=== PATIENT | female | born 2000 | race African-American/Black ===

== ENCOUNTER 2020-11-23 17:03 | Emergency (ER) | payer OTHER, SELFPAY ==
[2020-11-23 17:17] VITALS: BP 95/68; PULSE 104; RESP 18; TEMP 36.7; O2SAT 100
[2020-11-23 17:26] LABS: Basophils Percent Auto 0.1 % (0.2-1.2); Eosinophils Absolute Auto 0.1 K/mm3 (0-0.3); Eosinophils Percent Auto 0.7 % (0-4.4); Hematocrit 36.4 % (37.0-47.0); Hemoglobin 12.5 g/dL (12.0-15.0); Immature Granulocyte Absolute 0.02 K/mm3 (0.00-0.031); Immature Granulocyte Percent A 0.3 % (0-0.5); Lymphocytes Absolute Auto 1.35 K/mm3 (0.9-3.2); Lymphocytes Percent Auto 18.9 % (18.3-44.2); Mean Corpuscular HGB Conc 34.3 g/dl (32-36); Mean Corpuscular Hemoglobin 32.6 pg (26-34); Mean Corpuscular Volume 94.8 fl (80-100); Mean Platelet Volume 8.6 fl (7.4-10.4); Monocytes Absolute Auto 0.5 K/mm3 (0.1-0.6); Monocytes Percent Auto 7.6 % (2.6-8.5); Neutrophils Absolute Auto 5.2 K/mm3 (1.3-6.7); Neutrophils Percent Auto 72.4 % (45.5-73.1); Platelet Count Result 214 k/mm3 (150-375); Red Blood Count 3.84 M/mm3 (4.2-5.4); Red Cell Distribution Width 13.1 % (11.5-14.5); White Blood Count 7.2 K/mm3 (4.5-10.0)
[2020-11-23 19:17] VITALS: BP 112/67; PULSE 109; RESP 16; O2SAT 97
[2020-11-23 19:27] LABS: Alanine Aminotransferase 17 U/L (4-35); Albumin Level 3.9 g/dL (3.5-5.1); Alkaline Phosphatase 78 U/L (38-126); Anion Gap 8 mmol/L (8-16); Aspartate Amino Transferase 33 U/L (14-36); Bilirubin,Total 0.2 mg/dL (0.2-1.3); Blood Urea Nitrogen 6 mg/dL (7-17); Calcium 9.5 mg/dL (8.4-10.2); Carbon Dioxide 21 mmol/L (22-30); Chloride 107 mmol/L (98-107); Estimated CRCL calculation 148 ml/min; Estimated Glomerular Filt Rate > 60; Glucose 86 mg/dL (65-105); Lipase 59 U/L (23-300); Potassium 3.4 mmol/L (3.4-5.0); Sodium 136 mmol/L (137-145)
[2020-11-23 19:40] LABS: Add Urine Microscopic? YES; Amorphous Sediment Urine Few; Appearance Urine Cloudy (Clear); Bacteria Urine Trace /hpf; Bilirubin Urine Negative (Negative); Blood Urine Negative (Negative); Color Urine Yellow (Yellow); Glucose Urine UA Negative (Negative); Ketones Urine Negative (Negative); Leukocyte Esterase Ur Negative LEU/UL (Negative); Mucus Urine Few /lpf; Nitrate Urine Negative (Negative); Protein Urine 1+ mg/dL (Negative); RBC Urine 0-2 /hpf (0-2); Specific Grav Ur 1.024 (1.001-1.035); Squamous Epithelial Cell Urine Moderate /hpf (Few); Urobilinogen Urine Negative mg/dL (<2.0)
--- NOTE | 2020-11-23 19:43 | ED.ABDPAIN ---
HPI - Abdominal Pain General Chief Complaint: Abdominal Pain Stated Complaint: Lower ABD Cramping, 16 weeks preg Time Seen by Provider: 11/23/20 19:10 History of Present Illness HPI narrative: 16 weeks . Moderate lower abdominal cramping since this morning. Tried tyelonol without relief. She reports that she does not remember the last time she had a bowel movement. No vaginal bleeding, discharge, dysuria, hematuria. Related Data Allergies Allergy/AdvReac Type Severity Reaction Status Date / Time No Known Allergies Allergy Verified 11/23/20 19:19 Review of Systems Review of Systems: All systems reviewed & are unremarkable except as noted in HPI and below Constitutional: Constitutional: Denies fever(s) ENT: Denies dizziness Cardiovascular: Cardiovascular: Denies chest pain Respiratory: Respiratory: Denies dyspnea Gastrointestinal: Gastrointestinal: Reports abdominal pain, Reports constipation and Denies nausea Genitourinary: Genitourinary: Denies abnormal vaginal bleeding, Denies hematuria, Denies dysuria and Denies vaginal discharge Neurologic: Denies dizziness and Denies weakness [facility] Social History Social History (Updated 11/29/20 @ 15:29 by Parth Lucio MD) Smoking status: Never smoker Substance use: never Exam Const: General: healthy appearing, no acute distress and alert Orientation/consciousness: patient oriented x3 HENMT: Head: normal to inspection Neck: Neck: normal visual inspection Resp: Effort & Inspection: normal respiratory effort Auscultation: clear to auscultation bilaterally, no rales, no rhonchi and no wheezes Cardio: Jugular venous distension: no JVD Rate: regular rate Rhythm: regular rhythm Heart sounds: no murmurs GI: Inspection: non-distended GI Palp: Yes Soft to palpation and No Tenderness to palpation present (GI) Skin: General skin exam: normal color Neuro: General: patient oriented x3 and moves all extremities Speech: normal speech Extrem: General: no edema Psych: Appearance: well kempt Affect: Anxious affect present Procedures Other Procedure Procedure 1: Other Procedure: Bedside US Grossly normal appearing 16 week fetus Reassuring movement FHR 145 Course Vital Signs Vital signs: Vital Signs Temperature 36.7 C 11/23/20 17:17 Pulse Rate 104 H 11/23/20 17:17 Respiratory Rate 18 11/23/20 17:17 Blood Pressure 95/68 L 11/23/20 17:17 Pulse Oximetry 100 11/23/20 17:17 Temperature 36.7 C 11/23/20 17:17 Pulse Rate 109 H 11/23/20 19:17 Respiratory Rate 16 11/23/20 19:17 Blood Pressure 112/67 11/23/20 19:17 Pulse Oximetry 97 11/23/20 19:17 MDM - Abdominal Pain MDM Narrative Medical decision making narrative: Exam benign. Reassuring ultrasound. Based on H&P pain is likely constipation +/- normal related pain Differential Diagnosis Differential diagnosis: Likely constipation Medical Records Attestation: I reviewed the patient's medical records. Lab Data Attestation: I reviewed the patient's lab results. Result diagrams: 11/23/20 17:20 11/23/20 17:20 Labs: Lab Results 11/23/20 11/23/20 11/23/20 Range/Units 17:20 17:20 17:20 WBC 7.2 (4.5-10.0) K/mm3 RBC 3.84 L (4.2-5.4) M/mm3 Hgb 12.5 (12.0-15.0) g/dL Hct 36.4 L (37.0-47.0) % MCV 94.8 (80-100) fl MCH 32.6 (26-34) pg MCHC 34.3 (32-36) g/dl RDW 13.1 (11.5-14.5) % Plt Count 214 (150-375) k/mm3 MPV 8.6 (7.4-10.4) fl Immature Gran % (Auto) 0.3 (0-0.5) % Neut % (Auto) 72.4 (45.5-73.1) % Lymph % (Auto) 18.9 (18.3-44.2) % [place] % (Auto) 7.6 (2.6-8.5) % Eos % (Auto) 0.7 (0-4.4) % Baso % (Auto) 0.1 L (0.2-1.2) % Lymph # (Auto) 1.35 (0.9-3.2) K/mm3 [place] # (Auto) 0.5 (0.1-0.6) K/mm3 Eos # (Auto) 0.1 (0-0.3) K/mm3 Baso # (Auto) 0.0 (0.0-0.1) K/mm3 Abs Immat Gran (auto) 0.02 (0.00-0.031) K/mm3 Absolut
== END 2020-11-23 20:07 | disposition home or self-care (01) ==
PROVIDERS: Emergency Medicine; Emergency Provider Emergency Medicine
DX: O26.892 Other specified pregnancy related conditions, second trimester (principal); R10.30 Lower abdominal pain, unspecified; O99.612 Diseases of the digestive system complicating pregnancy, second trimester; K59.00 Constipation, unspecified; Z3A.16 16 weeks gestation of pregnancy
CPT/HCPCS: 36415; 80053; 81001; 83690; 84702; 85025; 85461; 99284

== ENCOUNTER 2021-01-22 23:12 | Observation (INO) | payer OTHER, SELFPAY ==
--- NOTE | 2021-01-22 23:58 | OBADM ---
This patient, Will Tomlinson, admitted to the OB room OB Post 117 for observation. Patient/family oriented to hospital policies and general routines including ID bracelet, bed and alarms, visiting hours, pain management, procedures, bathroom and other care routines, personal items, smoking policy, room service/diet, and visiting hours. Patient/Family are encouraged to report perceived risks to care and to ask questions if they do not understand what they are told or what they should do.
[2021-01-23 00:02] VITALS: BMI 28.3
[2021-01-23 00:05] VITALS: RESP 18; TEMP 36.8
[2021-01-23 00:26] LABS: Appearance Urine Clear (Clear); Bilirubin Urine Negative (Negative); Blood Urine Negative (Negative); Color Urine Light Yellow (Yellow); Glucose Urine UA Negative (Negative); Ketones Urine Negative (Negative); Nitrate Urine Negative (Negative); Protein Urine Negative (Negative); Specific Grav Ur 1.015 (1.001-1.035); pH Urine 7.5 (5.0-9.0)
[2021-01-23 00:27] LABS: Add Urine Microscopic? NO; Leukocyte Esterase Ur Negative LEU/UL (Negative); RBC Urine 0-2 /hpf (0-2); Squamous Epithelial Cell Urine Few /hpf (Few); Urobilinogen Urine 0.2 mg/dL (<2.0); WBC Urine 0-3 /hpf
[2021-01-23] MEDS: CYCLOBENZAPRINE HCL 10 MG TABLET PO (00:58)
[2021-01-23 01:39] VITALS: BP 99/69; PULSE 110
--- NOTE | 2021-01-27 06:37 | P.PNOB_ITS ---
OB - Triage/Final Diagnosis Visit Information Date of evaluation: 01/22/21 Reason for evaluation: threatened labor Comments/Additional reasons for admission: I have assessed the risk for this patient, Will Tomlinson, and determined that she would benefit from obs ervation care. Evaluation Laboratory results: Laboratory Tests 01/22/21 23:49 Urine Color Light yellow Urine Appearance Clear Urine pH 7.5 Ur Specific [place] 1.015 Urine Protein Negative Urine Glucose (UA) Negative Urine Ketones Negative Ur Blood (Man) Negative Urine Nitrate Negative Urine Bilirubin Negative Urine Urobilinogen 0.2 Leukocyte Esterase Rfl Negative Urine RBC 0-2 Urine WBC 0-3 Ur Squamous Epith Cells Few
== END 2021-01-23 02:40 | disposition home or self-care (01) ==
PROVIDERS: Advanced Practice Midwife; Admitting Provider Obstetrics & Gynecology; Visit Provider Obstetrics & Gynecology
DX: O47.03 False labor before 37 completed weeks of gestation, third trimester (principal); Z3A.23 23 weeks gestation of pregnancy
CPT/HCPCS: 81003; A9270; G0378; G0379

== ENCOUNTER 2021-02-06 15:34 | Outpatient (CLI) | payer OTHER, SELFPAY ==
--- NOTE | ~2021-02-06 | US_ITS ---
EXAMINATION: US venous doppler [facility] EXAM DATE: 02/06/2021 16:03 INDICATION: Left leg pain. TECHNIQUE: Multiple grayscale, color flow and Doppler images of the left lower extremity deep venous system were obtained and reviewed. There is no prior study for comparison. FINDINGS: The left common femoral, femoral and profunda veins demonstrate normal color flow, respirat ory variation, augmentation and compressibility. Compressibility, color flow confirmed within the le ft popliteal, posterior tibial, peroneal, and greater saphenous veins. IMPRESSION: 1. No left lower extremity deep venous thrombosis. Reviewed, dictated and finalized at location A.
== END 2021-02-06 15:35 | disposition home or self-care (01) ==
LOC: ANHIMG 15:35
PROVIDERS: Visit Provider Advanced Practice Midwife
DX: M79.605 Pain in left leg (principal)
CPT/HCPCS: 93971

== ENCOUNTER 2021-03-17 20:43 | Observation (INO) | payer OTHER, SELFPAY ==
[2021-03-17 21:04] VITALS: TEMP 36.9
[2021-03-17 21:05] VITALS: BP 103/62; PULSE 91
[2021-03-17 21:15] VITALS: BP 103/67; PULSE 86
[2021-03-17 22:03] LABS: Add Urine Microscopic? NO; Appearance Urine Clear (Clear); Bilirubin Urine Negative (Negative); Blood Urine Negative (Negative); Color Urine Straw (Yellow); Glucose Urine UA Negative (Negative); Ketones Urine Negative (Negative); Leukocyte Esterase Ur Negative LEU/UL (NEGATIVE); Nitrate Urine Negative (Negative); Protein Urine Negative (Negative); Urobilinogen Urine Negative mg/dL (<2.0)
[2021-03-17 22:04] LABS: Specific Grav Ur 1.004 (1.001-1.035)
--- NOTE | 2021-04-01 07:47 | P.PNOB_ITS ---
OB - Triage/Final Diagnosis Visit Information Comments/Additional reasons for admission: I have assessed the risk for this patient, Will Tomlinson, and determined that she would benefit from observation care. Evaluation Laboratory results: Laboratory Tests 03/17/21 21:54 Urine Color Straw Urine Appearance Clear Urine pH 7.0 Ur Specific [place] 1.004 Urine Protein Negative Urine Glucose (UA) Negative Urine Ketones Negative Ur Blood (Man) Negative Urine Nitrate Negative Urine Bilirubin Negative Urine Urobilinogen Negative Ur Leukocyte Esterase Negative Final Diagnosis (1) False labor: Code(s): O47.9 - False labor, unspecified Status: Acute (2) Nausea: Code(s): R11.0 - Nausea Status: Acute
== END 2021-03-17 22:32 | disposition home or self-care (01) ==
PROVIDERS: Advanced Practice Midwife; Admitting Provider Obstetrics & Gynecology; Visit Provider Obstetrics & Gynecology
DX: O47.03 False labor before 37 completed weeks of gestation, third trimester (principal); O21.0 Mild hyperemesis gravidarum; Z3A.32 32 weeks gestation of pregnancy
CPT/HCPCS: 81003; 87086; G0378; G0379

== ENCOUNTER 2021-03-22 08:09 | Observation (INO) | payer OTHER, SELFPAY ==
[2021-03-22] VITALS (19 sets, daily range): BP systolic 96–119; BP diastolic 63–77; PULSE 43–115; O2SAT 92–100
--- NOTE | 2021-03-22 09:12 | PM.IMHP ---
H&P: HPI History of Present Illness Date/Time: 03/22/21 09:12 Chief Complaint: Loss of fluid Review of Systems Review of Systems: All systems reviewed & are unremarkable except as noted in HPI and below Constitutional: Constitutional: Denies chills, Denies fatigue, Denies fever(s) and Denies weakness Eyes: Eyes: Denies blurry vision, Denies change in vision, Denies loss of peripheral vision, Denies loss of vision, Denies other visual disturbances and Denies eye pain ENT: Denies vertigo, Denies dizziness, Denies hearing loss, Denies mouth pain, Denies nasal obstruction, Denies neck mass and Denies neck pain Cardiovascular: Cardiovascular: Denies chest pain, Denies diaphoresis, Denies syncope, Denies leg edema and Denies dyspnea Respiratory: Respiratory: Denies chest congestion, Denies cough, Denies hemoptysis, Denies dyspnea and Denies wheezing Gastrointestinal: Gastrointestinal: Denies abdominal pain, Denies constipation, Denies diarrhea, Denies nausea and Denies vomiting Genitourinary: Genitourinary: Denies hematuria, Denies change in libido, Denies nocturia, Denies genital lesions, Denies flank pain and Denies urinary urgency Musculoskeletal: Musculoskeletal: Denies abnormal gait, Denies back pain, Denies myalgias, Denies arthralgias, Denies joint swelling, Denies muscle weakness and Denies neck pain Integumentary/Breasts: Skin/Breast: Denies swelling, Denies breast pain, Denies breast mass, Denies dry skin, Denies nipple discharge, Denies unusual bruising and Denies jaundice Neurologic: Denies Neuro-related abnormal movements, Denies Abnormal speech present, Denies abnormal gait, Denies behavioral changes, Denies confusion, Denies vertigo, Denies dizziness, Denies syncope, Denies loss of vision, Denies memory loss, Denies convulsions and Denies weakness Psychiatric: Psychiatric: Denies abnormal sleep pattern, Denies behavioral changes, Denies change in libido, Denies confusion, Denies depression, Denies anhedonia and Denies memory loss Endocrine: Endocrine: Reports no additional endocrine complaints, Denies change in libido and Denies fatigue Hematologic/Lymphatic: Hematologic/Lymphatic: Reports no additional hematologic/lymphatic complaints Allergic/Immunologic: Allergic/Immunologic: Reports no additional allergic/immunologic complaints and Denies wheezing PMFSH Social History Social History (Updated 11/29/20 @ 15:29 by Parth Luico MD) Smoking status: Never smoker Substance use: never Meds Home Medications and Allergies Home Medications Medication Instructions Recorded Confirmed Type polyethylene glycol 3350 [Miralax] 17 g PO BID PRN #510 g 11/23/20 01/23/21 Rx PNV cmb#95-ferrous fumarate-FA 1 tablet PO DAILY 01/23/21 01/23/21 History [] Allergies Allergy/AdvReac Type Severity Reaction Status Date / Time No Known Allergies Allergy Verified 11/23/20 19:19 Vital Signs Vital Signs - 24 hr 03/22/21 08:33 03/22/21 08:45 03/22/21 09:00 Pulse Rate 97 96 90 Blood Pressure 109/69 101/63 96/69 L Exam Const: General: cooperative, healthy appearing, comfortable and no acute distress Orientation/consciousness: oriented to person, oriented to place and oriented to time HENMT: Head: normal to inspection Ears: external ears normal General nose exam: Normal external nose present Face and sinus: normal facial exam Eyes: General: appearance normal, both eyes and all related structures Neck: Neck: normal visual inspection, trachea midline and supple Resp: Auscultation: clear to auscultation bilaterally, no crackles, no rales, no rhonchi and no wheezes Cardio: Rate: regular rate Rhythm: regular rhythm Heart sounds: no click, no murmurs and no rubs GI: GI Palp: No abdominal tenderness, No Soft to palpation, No Tenderness to palpation present (GI) and No Palpable mass present Auscultation: normal bowel sounds Skin: General skin exam: normal color and no rashes or lesions not
[2021-03-22] MEDS: NIFEdipine 30 MG TAB.ER.24 PO (09:42)
[2021-03-22 10:43] LABS: Fetal Fibronectin Negative
[2021-03-22] MEDS: TERBUTALINE SULFATE 1 MG/ML VIAL 0.25 MG SUB-Q (10:47)
--- NOTE | 2021-03-22 11:26 | PC.NURSE ---
0930- on unit, reviewed strip and ordered Procardia 30mg XL po.
--- NOTE | 2021-03-22 11:28 | PC.NURSE ---
0830- on unit, informed pt came in for possible ROM. Orders received.
--- NOTE | 2021-03-22 11:30 | PC.NURSE ---
1035- gave order for terbutaline O.25mcg SQ for up to 3 doses for contractions.
--- NOTE | 2021-03-22 14:02 | PC.NURSE ---
1217- called,informed contractions are very intermittent with pt stating she is comfortable going home and will return if contractions begin again. Order received to discharge pt and send procardia xl to pt's pharmacy.
== END 2021-03-22 12:47 | disposition home or self-care (01) ==
LOC: ANHOBOP 08:13 → ANHOBPP 12:01
PROVIDERS: Admitting Provider Obstetrics & Gynecology; Visit Provider Obstetrics & Gynecology
DX: O47.03 False labor before 37 completed weeks of gestation, third trimester (principal); Z3A.33 33 weeks gestation of pregnancy
CPT/HCPCS: 82731; 84112; 96372; 99199; A9270; G0378; G0379; J3105

== ENCOUNTER 2021-04-27 11:54 | Observation (INO) | payer OTHER, SELFPAY ==
--- NOTE | 2021-04-27 11:54 | OBADM ---
This patient, Will Tomlinson, admitted to the OB room Labor/Delivery/Recovery 109 for observation. Patient/family oriented to hospital policies and general routines including ID bracelet, bed and alarms, visiting hours, pain management, procedures, bathroom and other care routines, personal items, smoking policy, room service/diet, and visiting hours. Patient/Family are encouraged to report perceived risks to care and to ask questions if they do not understand what they are told or what they should do.
[2021-04-27 12:15] VITALS: BMI 34.0
--- NOTE | 2021-04-30 07:26 | P.PNOB_ITS ---
OB - Triage/Final Diagnosis Visit Information Date of evaluation: 04/28/21 Reason for evaluation: threatened labor Comments/Additional reasons for admission: I have assessed the risk for this patient, Will Tomilnson, and determined that she would benefit from o bservation care.
== END 2021-04-27 15:00 | disposition home or self-care (01) ==
PROVIDERS: Admitting Provider Obstetrics & Gynecology; Visit Provider Obstetrics & Gynecology
DX: O47.1 False labor at or after 37 completed weeks of gestation (principal); Z3A.38 38 weeks gestation of pregnancy
CPT/HCPCS: G0378; G0379

== ENCOUNTER 2021-04-30 20:37 | Outpatient (CLI) | payer OTHER, SELFPAY ==
[2021-04-30 21:20] VITALS: BP 131/83; PULSE 72; PULSE 80
== END 2021-04-30 21:30 | disposition home or self-care (01) ==
LOC: ANHOBOP 21:19 → ANHLDR 21:20
PROVIDERS: Visit Provider Obstetrics & Gynecology
DX: O41.8X90 Other specified disorders of amniotic fluid and membranes, unspecified trimester, not applicable or unspecified (principal); Z3A.00 Weeks of gestation of pregnancy not specified
CPT/HCPCS: 59025; 84112; 99199

== ENCOUNTER 2021-05-02 00:13 | Inpatient (IN) | payer OTHER, SELFPAY ==
[2021-05-02] VITALS (85 sets, daily range): BP systolic 76–182; BP diastolic 34–139; PULSE 59–250; RESP 16–20; TEMP 36.4–36.8; O2SAT 79–100; BMI 33.7
--- NOTE | 2021-05-02 00:13 | LDADM ---
This patient, Will Tomlinson, was admitted to Labor/Delivery/Recovery 108 on 05/02/21 at 00:13. Plans for labor, pain management and were discussed with patient. Patient/family oriented to hospital policies and general routines including ID bracelet, bed and alarms, visiting hours, pain management, procedures, bathroom and other care routines, personal items, smoking policy, room service/diet and guest tray routines, infant security routines, and visiting hours. Patient/Family are encouraged to report perceived risks to care and to ask questions if they do not understand what they are told or what they should do. See OBIX for further documentation.
[2021-05-02 00:56] LABS: Basophils Percent Auto 0.1 % (0.2-1.2); Eosinophils Percent Auto 0.3 % (0-4.4); Hematocrit 31.2 % (37.0-47.0); Immature Granulocyte Absolute 0.03 K/mm3 (0.00-0.031); Immature Granulocyte Percent A 0.4 % (0-0.5); Lymphocytes Absolute Auto 1.83 K/mm3 (0.9-3.2); Lymphocytes Percent Auto 23.8 % (18.3-44.2); Mean Corpuscular HGB Conc 32.1 g/dl (32-36); Mean Corpuscular Hemoglobin 27.9 pg (26-34); Mean Corpuscular Volume 86.9 fl (80-100); Mean Platelet Volume 8.9 fl (7.4-10.4); Monocytes Absolute Auto 0.9 K/mm3 (0.1-0.6); Neutrophils Percent Auto 64.4 % (45.5-73.1); Nucleated Red Blood Cells Perc 0.3 % (0.0-0.2); Platelet Count Result 286 k/mm3 (150-375); Red Blood Count 3.59 M/mm3 (4.2-5.4); Red Cell Distribution Width 14.9 % (11.5-14.5); White Blood Count 7.7 K/mm3 (4.5-10.0)
[2021-05-02] MEDS: LACTATED RINGERS 1,000 ML 125 ML IV CONT ×3 (01:02→10:09)
[2021-05-02] MEDS: OXYTOCIN 30 UNITS/NS 500 ML 30 UNITS/500 ML BAG 6 UNITS IV CONT (01:03)
[2021-05-02 06:38] LABS: Rapid Plasma Reagin Non-Reactive (NonReactive)
--- NOTE | 2021-05-02 06:58 | WPDOBADMIT ---
Obstetrics - Admit Note Admission Note: record reviewed. No pertinent additions to the history and/or any subsequent changes in the physical findings that are not consistent with the expected course of the were found. elective IOL, SVE /-2, SVE minimal amount of odorless fluid Additions to the history and/or subsequent changes in the physical findings follow. None.
[2021-05-02] MEDS: fentaNYL CITRATE INJ (*CRX) 100 MCG/2 ML VIAL 50 MCG IV PUSH ×2 (07:58→08:37)
[2021-05-02] MEDS: ONDANSETRON INJ 4 MG/2 ML VIAL IV PUSH (09:50)
--- NOTE | 2021-05-02 13:22 | P.PCNOB_ITS ---
OB - Delivery Note Procedure Delivery date: 05/02/21 Procedure: vaginal delivery Intrapartal events: None Induction method: AROM and per pitocin protocol Delivery monitor: external FHT and external uterine Route of delivery: Episiotomy description: None Laceration Description: Labial (left) Delivery repair: vicryl Specimen: No Quantitative Blood Loss (ml): 95 Anesthesia type: Epidural Disposition: floor [place] Baby Date of : 05/02/21 Time of : 13:09 Weeks of gestation at delivery: 39 Infant gender: Female Weight (pounds): 7 Weight (ounces): 2 presentation: vertex position: Left Occiput Anterior Placenta delivery description: Spontaneous cord vessel description: 3 Vessels, Nuchal Cord, Loose, Reduced and Cla mped/Cut score one minute: 8 score five minutes: 9 Narrative: mother and baby in stable condition
[2021-05-02] MEDS: OXYTOCIN 30 UNITS/NS 500 ML 30 UNITS/500 ML BAG 125 UNITS IV CONT (13:44)
[2021-05-02] MEDS: BENZOCAINE 20% AER SPR (*SP) 56 GM CAN 1 SPRAY TOPICAL (14:44)
[2021-05-02] MEDS: WITCH HAZEL 40 PADS 1 PAD TOPICAL (14:44)
--- NOTE | 2021-05-02 16:16 | PC.NURSE ---
Patient transferred to post room #285 via wheelchair. Support person present. Oriented to unit, room, information board, rooming in, admission packet and security measures. Patient verbalizes understanding.
[2021-05-02] MEDS: IBUPROFEN 600 MG TABLET PO (17:49)
[2021-05-02] MEDS: ACETAMINOPHEN 325 MG TABLET 650 MG PO (20:45)
[2021-05-03] MEDS: IBUPROFEN 600 MG TABLET PO ×3 (00:11→16:18)
[2021-05-03 03:10] VITALS: BP 101/60; PULSE 72; RESP 16; TEMP 36.6; O2SAT 98
[2021-05-03] MEDS: ACETAMINOPHEN 325 MG TABLET 650 MG PO ×3 (03:16→22:38)
[2021-05-03 04:51] LABS: Hematocrit 29.8 % (37.0-47.0); Hemoglobin 9.5 g/dL (12.0-15.0)
[2021-05-03 08:45] VITALS: BP 111/69; PULSE 70; RESP 12; TEMP 36.2; O2SAT 100
[2021-05-03] MEDS: POLYSACCHARIDE IRON COMPLEX 150 MG CAPSULE PO ×2 (09:21→16:18)
[2021-05-03] MEDS: DOCUSATE SODIUM 100 MG CAPSULE PO ×2 (09:21→16:18)
[2021-05-03] MEDS: MULTIVIT/MIN/PREN/FOL AC/IRON TABLET 1 TAB PO (09:21)
--- NOTE | 2021-05-03 12:09 | P.PNOB_ITS ---
OB - PN: Subj Subjective Date/time seen: 05/03/21 12:09 Patient comments: no complaints and pain well controlled baby status: nursing well [place] feeding status: exclusively breast feeding OB - PN: Obj Data Labs CBC & Chem 7: 05/03/21 03:22 Labs: Laboratory Results - last 24 hr 05/03/21 03:22 Hgb 9.5 L Hct 29.8 L OB - PN A/P Assessment and Plan (1) , delivered: Code(s): O80 - Encounter for full-term uncomplicated delivery Status: Acute Plan day: 1 Plan: routine care Time Spent With Patient Time: Total time spent is greater than 50% in coordination of care (as documented) at patient's floor/unit and/or counseling patient: Time with patient: less than 15 minutes Exam Narrative: NAD abdomen soft, nontender, fundus firm below the umbilicus Extremities nontender, 1+ edema
[2021-05-03 12:15] VITALS: BP 117/77; PULSE 72; RESP 16; TEMP 36.8; O2SAT 100
--- NOTE | 2021-05-03 14:20 | WPDANLDPN2 ---
Anes-Prog Note L&D Date/Time: 05/03/21 14:20 Comfortable throughout: labor and delivery Neuraxial method: epidural Epidural/Spinal procedure site: clean & non-tender Neuro status: Neuro function grossly intact. Cardiovascular status: normal Respiratory status: normal Airway patency: baseline Mental status: baseline Post-Op hydration status: normal Vital Signs: Last Vital Signs Temp 36.8 C 05/03/21 12:15 Pulse 72 05/03/21 12:15 Resp 16 05/03/21 12:15 BP 117/77 05/03/21 12:15 Pulse Ox 100 05/03/21 12:15 Pain score (VAS): 0 I/O: Intake & Output 05/02/21 05/03/21 05/03/21 23:59 07:59 15:59 Intake Total 500 Balance 500 Post-procedural complaints: none Patient feedback: Patient satisfied with anesthetic care.
[2021-05-03 19:30] VITALS: BP 121/73; PULSE 74; RESP 16; TEMP 36.7; O2SAT 100
[2021-05-04 09:29] VITALS: BP 113/73; PULSE 79; RESP 12; TEMP 36.1; O2SAT 99
[2021-05-04] MEDS: POLYSACCHARIDE IRON COMPLEX 150 MG CAPSULE PO (09:29)
[2021-05-04] MEDS: IBUPROFEN 600 MG TABLET PO (09:29)
[2021-05-04] MEDS: DOCUSATE SODIUM 100 MG CAPSULE PO (09:29)
[2021-05-04] MEDS: MULTIVIT/MIN/PREN/FOL AC/IRON TABLET 1 TAB PO (09:29)
--- NOTE | 2021-05-04 10:22 | PM.OBPNVD ---
OB - PN: Subj Subjective Date/time seen: 05/04/21 10:22 Patient comments: no complaints baby status: doing well OB - PN: Obj Data Labs CBC & Chem 7: 05/03/21 03:22 OB - PN A/P Plan day: 2 Plan: routine care and discharge home Time Spent With Patient Time: Total time spent is greater than 50% in coordination of care (as documented) at patient's floor/unit and/or counseling patient: Time with patient: less than 15 minutes Exam Narrative: NAD abdomen soft, nontender, fundus firm below the umbilicus Extremities nontender, 1+ edema
--- NOTE | 2021-05-04 10:24 | PM.OBDSVD ---
DS: Admitting Diagnosis Discharge Date 05/04/21 Admitting Diagnosis term IUP DS: Discharge Diagnosis Discharge Diagnosis (1) , delivered: Code(s): O80 - Encounter for full-term uncomplicated delivery Status: Acute OB - DS: Summary OB Procedures : Ultrasound OB Procedures Intrapartum: Spontaneous Vag Delivery OB Procedures: : None Peripartum Data Delivery Method: Natural Vaginal complications: none Status at Discharge Functional status at discharge: independent ambulation Time Spent with Patient Time attestation: Total time spent providing and/or coordinating discharge services: Time spent: Less than 30 minutes Exam Narrative: NAD abdomen soft, appropriately tender Ext non tender, 1+ edema Discharge Plan Discharge Attending physician on discharge: Alia Soria Discharging Clinician: Alia Soria Anticipated Discharge Date/Time: 05/04/21 10:23 Patient Disposition: Home, Self-Care Activity: pelvic rest Diet: regular Patient Instructions: Antibiotic Form Stand Alone Forms: General Discharge Information Follow-up/Referrals: Joann Rooney MD [Physician] - 1 Week Discharge Medications: Continued PNV cmb#95-ferrous fumarate-FA [] 28 mg iron- 800 mcg Tablet 1 tablet PO DAILY RF: 0 Date of admission: 05/02/21 00:13 Primary Care Provider: PHYSICIAN,WINE STEWARD/STEWARDESS Admitting Provider: Joann Rooney Attending physician on admission: Joann Rooney Condition: Stable
== END 2021-05-04 14:05 | disposition home or self-care (01) | DRG 560 ==
LOC: ANHOB2 05-04 10:24 → ANHLDR 05-06 13:30 → ANHOB2 05-06 13:30
PROVIDERS: Advanced Practice Midwife; Admitting Provider Obstetrics & Gynecology; Visit Provider Obstetrics & Gynecology
DX: O69.81X0 Labor and delivery complicated by cord around neck, without compression, not applicable or unspecified (principal); Z37.0 Single live birth; Z3A.39 39 weeks gestation of pregnancy; O36.8330 Maternal care for abnormalities of the fetal heart rate or rhythm, third trimester, not applicable or unspecified; O70.0 First degree perineal laceration during delivery
CPT/HCPCS: 36415; 85014; 85018; 85025; 86592; 86850; 86900; 86901; A9270; J2405; J2590; J3010; J7120

== ENCOUNTER 2024-04-23 05:58 | Observation (INO) | payer OTHER, SELFPAY ==
[2024-04-23 06:16] VITALS: BP 112/75; PULSE 85
--- NOTE | 2024-04-23 08:51 | OBADM ---
This patient, Will Tomlinson, admitted to the OB room Labor/Delivery/Recovery 106 for observation. Patient/family oriented to hospital policies and general routines including ID bracelet, bed and alarms, visiting hours, pain management, procedures, bathroom and other care routines, personal items, smoking policy, room service/diet, and visiting hours. Patient/Family are encouraged to report perceived risks to care and to ask questions if they do not understand what they are told or what they should do.
--- NOTE | 2024-04-25 07:59 | PM.OBTRLD ---
OB - Triage/Final Diagnosis Visit Information Date of evaluation: 04/23/24 Reason for evaluation: threatened labor Comments/Additional reasons for admission: I have assessed the risk for this patient, Will Tomlinson, and determined that she would benefit from observation care.
== END 2024-04-23 08:30 | disposition home or self-care (01) ==
PROVIDERS: Admitting Provider Obstetrics & Gynecology; Visit Provider Obstetrics & Gynecology
DX: O47.1 False labor at or after 37 completed weeks of gestation (principal); Z3A.37 37 weeks gestation of pregnancy
CPT/HCPCS: G0379

== ENCOUNTER 2024-04-25 15:12 | Inpatient (IN) | payer OTHER, SELFPAY ==
[2024-04-25] VITALS (19 sets, daily range): BP systolic 102–121; BP diastolic 56–84; PULSE 81–101; RESP 16; TEMP 36.1–36.6; O2SAT 96–99; BMI 32.5
[2024-04-25 16:33] LABS: Basophils Percent Auto 0.1 % (0.2-1.2); Eosinophils Percent Auto 0.1 % (0-4.4); Hemoglobin 11.9 g/dL (12.0-15.0); Immature Granulocyte Absolute 0.04 K/mm3 (0.00-0.031); Immature Granulocyte Percent A 0.5 % (0-0.5); Lymphocytes Absolute Auto 1.68 K/mm3 (0.9-3.2); Lymphocytes Percent Auto 20.8 % (18.3-44.2); Mean Corpuscular HGB Conc 32.2 g/dl (32-36); Mean Corpuscular Hemoglobin 29.2 pg (26-34); Mean Corpuscular Volume 90.7 fl (80-100); Mean Platelet Volume 8.8 fl (7.4-10.4); Monocytes Absolute Auto 0.7 K/mm3 (0.1-0.6); Monocytes Percent Auto 8.2 % (2.6-8.5); Neutrophils Absolute Auto 5.7 K/mm3 (1.3-6.7); Neutrophils Percent Auto 70.3 % (45.5-73.1); Platelet Count Result 259 k/mm3 (150-375); Red Blood Count 4.08 M/mm3 (4.2-5.4); Red Cell Distribution Width 13.7 % (11.5-14.5); White Blood Count 8.1 K/mm3 (4.5-10.0)
[2024-04-25 17:19] LABS: Rapid Plasma Reagin Non-Reactive (NonReactive)
[2024-04-25 17:28] LABS: HIV 1/2 Ab P24 Ag Result Negative (Negative)
--- NOTE | 2024-04-25 17:39 | LDADM ---
This patient, Will Tomlinson, was admitted to Labor/Delivery/Recovery 104 on 04/25/24 at 15:12. Plans for labor, pain management and were discussed with patient. Patient/family oriented to hospital policies and general routines including ID bracelet, bed and alarms, visiting hours, pain management, procedures, bathroom and other care routines, personal items, smoking policy, room service/diet and guest tray routines, infant security routines, and visiting hours. Patient/Family are encouraged to report perceived risks to care and to ask questions if they do not understand what they are told or what they should do. See OBIX for further documentation.
[2024-04-25] MEDS: AMPICILLIN 2 GM/NS 100 ML 2 GM/100 ML BAG IVPB (18:22)
[2024-04-25] MEDS: LACTATED RINGERS 1,000 ML 125 ML IV CONT (18:22)
[2024-04-25] MEDS: OXYTOCIN 30 UNITS/NS 500 ML 30 UNITS/500 ML BAG IV CONT (18:23)
--- NOTE | 2024-04-25 20:19 | WPDOBADMIT ---
Obstetrics - Admit Note Admission Note: record reviewed. No pertinent additions to the history and/or any subsequent changes in the physical findings that are not consistent with the expected course of the were found. Additions to the history and/or subsequent changes in the physical findings follow. SROM, anticipate vaginal delivery
[2024-04-25] MEDS: AMPICILLIN 1 GM/NS 50 ML 1 GM/50 ML BAG IVPB (22:25)
[2024-04-26] VITALS (62 sets, daily range): BP systolic 84–192; BP diastolic 47–174; PULSE 72–248; RESP 16–18; TEMP 36.2–36.8; O2SAT 85–100
--- NOTE | 2024-04-26 02:02 | PM.OBPNLAB ---
Pain Control Date/time seen: 04/26/24 02:02 Comments: LARON /-2 AROM forebag, moderate amount of clear, odorless fluid, IUPC placed, anticipate vaginal delivery
[2024-04-26] MEDS: AMPICILLIN 1 GM/NS 50 ML 1 GM/50 ML BAG IVPB (02:18)
[2024-04-26] MEDS: fentaNYL CITRATE INJ (*CRX) 100 MCG/2 ML VIAL 50 MCG IV PUSH (03:22)
--- NOTE | 2024-04-26 05:04 | PM.OBPRVD ---
OB - Vaginal Delivery Note Procedure Delivery date: 04/26/24 Delivery augmentation: Pitocin Delivery monitor: External FHT and Internal Uterine Route of delivery: Episiotomy description: None Laceration Description: None Specimen: No Quantitative Blood Loss (ml): 80 Anesthesia type: Epidural Disposition: Floor Complications: No immediate complications Baby Date of : 04/26/24 Time of : 04:53 Gestational Age by Date: 37 Infant gender: Female Weight (pounds): 5 Weight (ounces): 15 presentation: vertex position: Left Occiput Anterior Placenta delivery description: Spontaneous Cord Vessel Description: 3 Vessels, Nuchal Cord (x1) and Loose score one minute: 8 score five minutes: 9 Narrative: mother and baby in stable condition
[2024-04-26] MEDS: OXYTOCIN 30 UNITS/NS 500 ML 30 UNITS/500 ML BAG 125 UNITS IV CONT (05:30)
[2024-04-26] MEDS: WITCH HAZEL 40 PADS 1 PAD TOPICAL (07:58)
--- NOTE | 2024-04-26 08:14 | OBPPTRN ---
Patient transferred to post room #276 via wheelchair. Support person and baby present. Oriented to unit, room, information board, rooming in, admission packet and security measures. Patient verbalizes understanding.
[2024-04-26] MEDS: IBUPROFEN 600 MG TABLET PO ×2 (08:36→19:04)
[2024-04-26] MEDS: MULTIVIT/MIN/PREN/FOL AC/IRON TABLET 1 TAB PO (08:37)
[2024-04-26] MEDS: ACETAMINOPHEN 325 MG TABLET 650 MG PO (13:23)
[2024-04-27 04:10] VITALS: BP 114/75; PULSE 85; RESP 18; TEMP 35.9; O2SAT 99
[2024-04-27 05:14] LABS: Hematocrit 32.8 % (37.0-47.0); Hemoglobin 10.5 g/dL (12.0-15.0)
--- NOTE | 2024-04-27 07:44 | PM.OBPNVD ---
OB - PN: Subj Subjective Date/time seen: 04/27/24 07:44 Interval history: PPD#1 Doing well, no issues Tolerating general diet Voiding without issue Baby doing well Desires discharge today OB - PN: Obj Data Labs 04/27/24 02:58 Labs: Laboratory Results - last 24 hr 04/27/24 02:58 Hgb 10.5 L Hct 32.8 L OB - PN A/P Assessment and Plan (1) (spontaneous vaginal delivery): Code(s): O80 - Encounter for full-term uncomplicated delivery Status: Acute Plan day: 1 Plan: routine care and discharge home Time Spent With Patient Time: Total time spent is greater than 50% in coordination of care (as documented) at patient's floor/unit and/or counseling patient: Review of Systems Review of Systems: All systems reviewed & are unremarkable except as noted in HPI and below Exam Const: General: comfortable and no acute distress Orientation/consciousness: patient oriented x3 Resp: Effort & Inspection: normal respiratory effort
--- NOTE | 2024-04-27 07:46 | P.DS_ITS ---
DS: Admitting Diagnosis Discharge Date 04/27/24 Admitting Diagnosis labor DS: Discharge Diagnosis Discharge Diagnosis (1) (spontaneous vaginal delivery): Code(s): O80 - Encounter for full-term uncomplicated delivery Status: Acute OB - DS: Summary OB Procedures : None OB Procedures Intrapartum: Spontaneous Vag Delivery OB Procedures: : None Peripartum Data Laceration Description: None Episiotomy description: None Time Spent with Patient Time attestation: Total time spent providing and/or coordinating discharge services: DS: Data Data Completed and Pending Labs on day of discharge: Labs from last 24 hours 04/27/24 02:58 Hgb 10.5 L Hct 32.8 L Discharge Plan Discharge Attending physician on discharge: Ranjeet Bledsoe Discharging Clinician: Ranjeet Bledsoe Patient Disposition: Home, Self-Care Activity: may shower, as tolerated and pelvic rest Diet: as tolerated Patient Instructions: Antibiotic Form Stand Alone Forms: General Discharge Information Follow-up/Referrals: Sammi Monsalve CNM [Certified Nurse [employer] Teacher] - 4 Weeks Discharge Medications: New ibuprofen 600 mg Tablet 600 mg PO Q6H PRN (Reason: Cramping) Qty: 30 0RF docusate sodium 100 mg Capsule 100 mg PO BID PRN (Reason: Constipation) Qty: 60 0RF Continued PNV cmb#95-ferrous fumarate-FA [] 28 mg iron- 800 mcg Tablet 1 tablet PO DAILY metoclopramide HCl [Reglan] 10 mg Tablet 10 mg PO Q6H PRN (Reason: Nausea) Date of admission: 04/25/24 15:12 Primary Care Provider: Taylor Bhatt Admitting Provider: Devon Rooney Attending physician on admission: Devon Rooney Condition: Stable
[2024-04-27 07:50] VITALS: BP 100/64; PULSE 88; RESP 16; TEMP 36.8; O2SAT 100
[2024-04-27] MEDS: IBUPROFEN 600 MG TABLET PO (08:41)
[2024-04-27] MEDS: MULTIVIT/MIN/PREN/FOL AC/IRON TABLET 1 TAB PO (08:41)
[2024-04-27] MEDS: DOCUSATE SODIUM 100 MG CAPSULE PO (08:41)
--- NOTE | 2024-04-27 09:52 | WPDANLDPN2 ---
Anes-Prog Note L&D Date/Time: 04/27/24 09:52 Neuraxial method: epidural Epidural/Spinal procedure site: clean & non-tender Neuro status: Neuro function grossly intact. Cardiovascular status: normal Respiratory status: normal Airway patency: baseline Mental status: baseline Post-Op hydration status: normal Vital Signs: Last Vital Signs Temp 36.8 C 04/27/24 07:50 Pulse 88 04/27/24 07:50 Resp 16 04/27/24 07:50 BP 100/64 04/27/24 07:50 Pulse Ox 100 04/27/24 07:50 O2 Del Method Room Air 04/27/24 08:00 Pain score (VAS): 3/10 Patient feedback: Patient satisfied with anesthetic care. epidural performed just a few minutes before delivery
== END 2024-04-27 11:48 | disposition home or self-care (01) | DRG 560 ==
LOC: ANHLDR 16:02 → ANHOB2 04-27 07:46 → ANHLDR 05-02 10:39
PROVIDERS: Admitting Provider Obstetrics & Gynecology; Referring Provider Advanced Practice Midwife; Visit Provider Obstetrics & Gynecology
DX: O42.12 Full-term premature rupture of membranes, onset of labor more than 24 hours following rupture (principal); Z37.0 Single live birth; Z3A.37 37 weeks gestation of pregnancy; O69.81X0 Labor and delivery complicated by cord around neck, without compression, not applicable or unspecified
CPT/HCPCS: 36415; 85014; 85018; 85025; 86592; 86703; 86850; 86900; 86901; A9270; G0432; J0290; J2590; J2795; J3010; J7120

== ENCOUNTER 2024-08-21 00:04 | Day surgery (SDC) | payer BC, SELFPAY ==
--- NOTE | 2024-08-17 15:08 | PC.NURSE ---
Report to the Outpatient Waiting Room, entrance under the green pavilion located off [facility], at time 0600_ on date _08/21/24_. Planned Procedure Time: _0730_.? Time changes happen often and if your time is changed the preop area will call you the afternoon before. - You and your visitor will be asked to self-screen and do not enter if you have any COVID symptoms. Please call surgeon if you need to reschedule. - A mask is optional within the hospital at this time. Patients may have clear liquids (water, carbonated beverages, clear teas, apple juice) until 3 hours prior to surgery with a maximum of 20 ounces. - No food from midnight until time of surgery and no smoking, or chewing tobacco (or any form of nicotine). No chewing gum, candy or mints. - Infants may have breast milk until 4 hours before surgery, infant formula 6 hours prior to surgery. - Children will be allowed to drink immediately following surgery.? If applicable, please bring a bottle or sippy cup to assist with drinking. Juice, water, soda, and popsicles are readily available.? For infants on formula, please bring formula the day of surgery.? Pacifiers are allowed. Take only the following medications with a SIP of water on the morning of surgery: NONE DO NOT STOP ANY OF YOUR OTHER PRESCRIPTION MEDICATIONS PRIOR TO SURGERY EXCEPT THE FOLLOWING Hold all vitamins and supplements for 3 days per anesthesiologist. Medications to discontinue per physician Date to take last dose Please no make-up, nail welsh, hairspray, perfume, deodorant, or body powder the day of surgery.? No jewelry (including any body piercings) or valuables the day of surgery, leave them at home.? Please take a shower or bath the night before, or the morning of, surgery with an antibacterial soap.? Wear comfortable, loose fitting clothing.? Children are encouraged to wear pajamas. - Jewelry must be removed prior to entering the operating room.? Rings and piercings that are not removed may be cut off. - The hospital will not accept responsibility for valuables.? - Please leave all valuables, including medications, at home the day of surgery. If you are going home after surgery, a licensed tier truck driver must drive you home.? - NO public transportation without another adult if you receive anesthesia. - We recommend that an adult stay with you for 24 hours following discharge. - We also recommend that you do not drive, make important decision, drink alcoholic beverages, or take any drugs that were not prescribed by your health care provider for at least 24 hours after your discharge time. For Pediatric surgeries, we recommend two adults accompany the child home. Follow any additional instructions given to you from your surgeon. Telephone instructions given to _PATIENT __and asked if any additional questions and then verbalized understanding. Patient advised to call surgeon office or pre surgery nurse liaison [phone] if any additional questions.
--- OUTSIDE RECORDS SUMMARY | 2024-08-21 00:08 | XMS_ITS | Data Portability ---
Author Organization [facility] Address [address] [place] [address] [place] [address] Assessment Encounter Date Assessment Date Assessment LastModified by Organization Details LastModified Time 04/12/2024 04/12/2024 Patient is _35__weeks . Discussed plan. Not available 04/12/2024 18:31:06 04/19/2024 04/19/2024 Patient is ___36weeks . Discussed plan. [email or web address] Not available 04/19/2024 17:37:02 Plan of Treatment Reminders Order Date Submit Date Provider Last Modified By Organization Details Last Modified Time Details Appointments SURG Suction D&C 2024 07:30A Terry ANGEL MD Not available Not available Not available SURG POST OP 2024 03:15P Terry ANGEL MD Not available Not available Not available Lab test, urine 2024 025 [email or web address] [place], [address], [place], [address], 08/11/2024 15:49:29 beta-HCG, quantitat janes, serum or plasma 2024 025 [facility] (Lab), [address] [facility], [place], [address], 08/12/2024 03:36:30 streptoco ccus group B, culture, unspecifi ed specimen 2023 024 [facility] (Lab), [address], [place], [address], 04/15/2024 15:14:26 Referral None recorded. Procedures None recorded. Surgeries None recorded. Imaging None recorded. Medication Orders None recorded. Patient TargetsNo targets recorded. Patient InstructionsNo instructions recorded. Reason for Referral None Reported. Results Created Date Observation Date Name Description Value Unit Range Abnormal Flag Note LastModifiedBy Organization Detail LastModifiedTime 04/12/20 24 04/12/2024 CULTU RE: GROUP B STREP SCREE N, REFLE X SUSCE PTIBI LITY result report SEE RESULT S BELOW Test: Cultu re: Group B Strep , Refle x Susce ptibi lity ([facility]/ [facility]/K [facility] ) Speci men Sourc e: Vagin a/Rec latanya Speci men Type: Vagin al/Re ctal Speci men Date: 04/12 1734 Resul t Date: 04/15 1412 Resul t Statu s: Final resul t Abnor mal: No Resul ting Lab: [facility] [address] [facility] [address] Tel: CULTU RE ----- ----- ----- --- No Group B strep isola claudia at 2 days (kristen ctive broth enhan cemen t) Not Available [facility] (Lab) [address], [place], [address], 04/15/2024 15:14:26 08/12/19 25 08/11/2024 BHCG, QUANT ITATI VE B-HCG 801.0 mIU/m L 0.0-4. 9 high This assay was perfo rmed using [employer] n reage nts and test kits. Value s obtai eric with other assay metho ds or kits canno t be used inter ho eably . Refer ence Range s: Non-p regna nt, preme nopau randy women : 0.0-4 .9 mIU/m L Postm enopa usal women : 0.0-7 .0 mIU/m L Ciarra l Pregn michaela: Gesta layla l Age bHCG Conc. - mIU/m L 3 Weeks 5.8 - 71.7 4 Weeks 9.5 - 750 5 Weeks 217-7 138 6 Weeks 158 - 31,79 5 7 Weeks 3,697 - 162,5 63 8 Weeks 32,06 5 - 149,5 71 9 Weeks 63,80 3 - 151,4 10 10 Weeks 46,50 9 - 186,9 77 12 Weeks 27,83 2 - 210,6 12 14 Weeks 13,95 0 - 62,53 0 15 Weeks 12,03 9 - 70,97 1 16 Weeks 9,040 - 56,45 1 17 Weeks 8,175 - 55,86 8 18 Weeks 8,099 - 58,17 6 Not Available [facility] (Lab) [address] [place], [address], 08/12/2024 03:36:30 08/12/19 25 08/11/2024 WOMEN 'S HEALT H SWAB PLUS, TERESA bacterial vaginosis (bv), tma Positi ve negati ve abnormal Not Available [facility] (Lab) [address] [place], [address], 08/12/2024 14:33:55 08/12/19 25 08/11/2024 WOMEN 'S HEALT H SWAB PLUS, TERESA chente species, tma Negati ve negati ve Not Available [facility] (Lab) [address] [place], [address], 08/12/2024 14:33:55 08/12/19 25 08/11/2024 WOMEN 'S HEALT H SWAB PLUS, TERESA chnete glabrata, tma Negati ve negati ve Not Available [facility] (Lab) [address] [place], [address], 08/12/2024 14:33:55 08/12/19 25 08/11/2024 WOMEN 'S HEALT H SWAB PLUS, TERESA trichomonas vaginalis, tma Negati ve negati ve Not Available [facility] (Lab) [address] [place], [address], 08/12/2024 14:33:55 08/12/19 25 08/11/2024 WOMEN 'S HEALT H SWAB PLUS, TERESA chlamydia trachomatis, PCR Negati ve negati ve Not Available [facility] (Lab) [address] [facility], [place], [address], 08/12/2024 14:33:55 08/12/19 25 08/11/2024 WOMEN 'S HEALT H SWAB PLUS, TERESA neisseria gonorrhoeae, PCR Negati ve negati ve Bacte rial vagin osis detec ts the follo wing bacte noah assoc iated with bacte rial vagin osis (BV): Lacto bacil steven (L. gasse ri, L. crisp atus and L. jense herlinda), Gardn erell a vagin jose enrique, and Atopo bium vagin ae. A singl e quali tativ e resul t is repor claudia base on instr ument softw are to deter mine BV posit janes or negat janes statu s. The Deloris da speci es group tests for C. albic ans, C. tropi calis , C. parap regla is, C. dubli niens is. Testi ng is perfo rmed using the Trans c[employer] ion [employer] claudia Ampli ficat ion metho d. Tests for Deloris da glabr mayra, Trich omona s vagin jose enrique, Chlam ydia trach omati s, and Neiss eria gonor rhoea e are also inclu ded in this panel . Not Available [facility] (Lab) [address] [place], [address], 08/12/2024 14:33:55 08/12/19 25 08/11/2024 pregn michaela test, urine HCG positi ve Not Available [place] [address], [place], [address], 08/11/2024 15:49:00 08/16/19 25 08/15/2024 BHCG, QUANT ITATI VE B-HCG 868.0 mIU/m L 0.0-4. 9 high This assay was perfo rmed using [employer] reage nts and test kits. Value s obtai eric with other assay metho ds or kits canno t be used inter ho eably . Refer ence Range s: Non-p regna nt, preme nopau randy women : 0.0-4 .9 mIU/m L Postm enopa usal women : 0.0-7 .0 mIU/m L Ciarra l Pregn michaela: Gesta layla l Age bHCG Conc. - mIU/m L 3 Weeks 5.8 - 71.7 4 Weeks 9.5 - 750 5 Weeks 217-7 138 6 Weeks 158 - 31,79 5 7 Weeks 3,697 - 162,5 63 8 Weeks 32,06 5 - 149,5 71 9 Weeks 63,80 3 - 151,4 10 10 Weeks 46,50 9 - 186,9 77 12 Weeks 27,83 2 - 210,6 12 14 Weeks 13,95 0 - 62,53 0 15 Weeks 12,03 9 - 70,97 1 16 Weeks 9,040 - 56,45 1 17 Weeks 8,175 - 55,86 8 18 Weeks 8,099 - 58,17 6 Not Available [facility] (Lab) [address], [place], [address], 08/16/2024 04:41:09 04/04/20 24 04/04/2024 US, obste tric, follo w-up No observ ation record ed. [email or web address] [place] [address], [place], [address], 04/04/2024 16:37:53 04/04/20 24 04/04/2024 US, obste tric, follo w-up No observ ation record ed. ADELINA Foreman [address], [place], [address], 04/05/2024 12:08:41 05/05/20 24 05/05/2024 non-s tress test No observ ation record ed. [address], [place], [address], 07/27/2024 11:48:32 08/12/19 25 08/11/2024 US, obste tric, follo w-up No observ ation record ed. [email or web address] [address], [place], [address], 08/13/2024 17:14:15 Result Notes None recorded. Problems Name Problem SNOMED Code Status Onset Date Resolution Date Notes Provider Name and Address Organization Details Recorded Time Pregnanc y 57555172 Completed 202005/28/2021 Antonietta [email or web address], [facility] 4 13:41:12 Pregnanc y 14931614 Completed 202305/25/2024 Antonietta mcmanus, [facility] 13:41:12 Placenta circumva llata 2006038 Completed 2023 plan 32 week growth Sammi Monsalve CNM [address], [place], [address], [facility] 4 16:12:22 Mixed anxiety and depressi ve disorder 139790540 Active started on zoloft 25 mg 02/10 Sammi Monsalve CNM [address], [place], [address], [facility] 4 12:14:15 Mixed anxiety and depressi ve disorder 218146272 Completed started on zoloft 25 mg 02/10 Sammi Monsalve CNM [address], [place], [address], [facility] 4 12:14:15 Problem Notes None recorded. Procedures Surgical History Date Name Laterality Status Provider Name and Address Organization Details Recorded Time 04/22/2023 Date of Last Pap Smear completed Antonietta Grimm [facility] 06/08/2023 09:33:30 Imaging Results Imaging Date Name Status LastModified by Organiz ation Details LastModified Time 04/04/2024 US, obstetric, follow-up completed [email or web address] [place] [address], [place], [address], 04/04/2024 16:37:53 04/04/2024 US, obstetric, follow-up completed ADELINA [address], [place], [address], 04/05/2024 12:08:41 05/05/2024 non-stress test completed [address], [place], [address], 07/27/2024 11:48:32 08/11/2024 US, obstetric, follow-up completed [email or web address] [address], [place], [address], 08/13/2024 17:14:15 Procedure Notes None recorded. Medical Equipment None Reported. Allergies No known drug allergies Medications Name Sig Start Date Stop Date Status Note LastModified by Organization Details LastModified Time nifedipine ER 30 mg tablet,exte nded release 24 hr 04/16 completed Not Available Not Available Not Available medroxyprog esterone 10 mg tablet Take 1 tablet every day by oral route at bedtime for 10 days. 07/30 completed Not Available Not Available Not Available clindamycin HCl 300 mg capsule TAKE 1 CAPSULE BY MOUTH EVERY 12 HOURS FOR 7 DAYS 08/12 completed Not Available Not Available Not Available triamcinolo ne acetonide 0.5 % topical cream APPLY TOPICALLY TO THE AFFECTED AREA TWICE DAILY 09/30 completed Not Available Not Available Not Available tizanidine 4 mg tablet TAKE 1 TABLET BY MOUTH EVERY 6 HOURS NEEDED 04/20 completed Not Available Not Available Not Available fluconazole 150 mg tablet TAKE 1 TABLET BY MOUTH ONCE FOR A SINGLE DOSE AFTER COMPLETEI NG FLAGYL. 12/28 completed Not Available Not Available Not Available valacyclovi r 1 gram tablet TAKE 1 TABLET BY MOUTH TWICE DAILY FOR 7 DAYS 04/20 completed Not Available Not Available Not Available sumatriptan 25 mg tablet 10/05 completed Not Available Not Available Not Available metronidazo le 0.75 % (37.5 mg/5 gram) vaginal gel INSERT 1 APPLICATO RFUL VAGINALLY EVERY DAY FOR 5 DAYS DIRECTED 10/05 completed Not Available Not Available Not Available prednisone 20 mg tablet 09/30 completed Not Available Not Available Not Available benzoyl peroxide 10 % topical cleanser USE TO CLEANSE THE FACE EVERY DAY 05/08 completed Not Available Not Available Not Available metronidazo le 500 mg tablet Take 1 tablet twice a day by oral route for 7 days. 2024 active Not Available Not Available Not Avai lable sulfamethox azole 800 mg-trimetho prim 160 mg tablet TAKE 1 TABLET BY MOUTH TWICE DAILY 09/30 completed Not Available Not Available Not Available butalbital- acetaminoph en-caffeine 50 mg-325 mg-40 mg tablet TAKE 1 TABLET BY MOUTH EVERY 4 HOURS NEEDED FOR HEADACHE OR MIGRAINE 08/11 completed Not Available Not Available Not Available amoxicillin 875 mg tablet 09/30 completed Not Available Not Available Not Available metoclopram chapito 5 mg tablet Take 1 tablet 4 times a day by oral route as needed. 08/11 completed Not Available Not Available Not Available triamcinolo ne acetonide 0.1 % topical ointment 09/30 completed Not Available Not Available Not Available sertraline 25 mg tablet Take 1 tablet every day by oral route. 03/06 completed Not Available Not Available Not Available montelukast 10 mg tablet 10/05 completed Not Available Not Available Not Available ergocalcife rol (vitamin D2) 1,250 mcg (50,000 unit) capsule take 1 capsule weekly and than repeat lab work 02/10 completed Not Available Not Available Not Available ibuprofen 600 mg tablet 09/30 completed Not Available Not Available Not Available polyethylen e glycol 3350 17 gram/dose oral powder 03/19 completed Not Available Not Available Not Available levofloxaci n 500 mg tablet TAKE 1 TABLET BY MOUTH EVERY DAY FOR 7 DAYS 09/30 completed Not Available Not Available Not Available methylpredn isolone 4 mg tablets in a dose pack FOLLOW PACKAGE DIRECTION S 09/30 completed Not Available Not Available Not Available ondansetron 4 mg disintegrat ing tablet DISSOLVE 1 TABLET ON THE TONGUE EVERY 8 HOURS 08/11 completed Not Available Not Available Not Available medroxyprog esterone 150 mg/mL intramuscul ar suspension Inject 1 mL every 3 months by intramusc ular route. 11/05 completed Not Available Not Available Not Available doxycycline hyclate 100 mg tablet TAKE 1 TABLET BY MOUTH TWICE DAILY FOR 7 DAYS 09/30 completed Not Available Not Available Not Available loratadine 10 mg tablet TAKE 1 TABLET BY MOUTH EVERY DAY NEEDED FOR ALLERGIES 04/07 completed Not Available Not Available Not Available naproxen 500 mg tablet TAKE 1 TABLET BY MOUTH TWICE DAILY NEEDED FOR PAIN. TAKE WITH FOOD 04/20 completed Not Available Not Available Not Available medroxyprog esterone 150 mg/mL intramuscul ar syringe Inject 1 mL every 3 months by intramusc ular route. 02/11 completed Not Available Not Available Not Available nitrofurant oin monohydrate /macrocryst als 100 mg capsule TAKE 1 CAPSULE BY MOUTH TWICE DAILY 09/30 completed Not Available Not Available Not Available 07/30 completed Not Available Not Available Not Available 28 mg iron-800 mcg tablet TAKE 1 TABLET BY MOUTH TABLET DAILY 08/11 completed Not Available Not Available Not Available Fioricet 50 mg-300 mg-40 mg capsule Take 1 capsule every 6 hours by oral route. 03/19 completed Not Available Not Available Not Available Aurovela Fe 1-20 (28) 1 mg-20 mcg (21)/75 mg (7) tablet 09/30 completed Not Available Not Available Not Available Slynd 4 mg (28) tablet TAKE 1 TABLET BY MOUTH EVERY DAY 02/11 completed Not Available Not Available Not Available ID NOW COVID-19 Test Kit TEST DIRECTED TODAY 09/30 completed Not Available Not Available Not Available Vitals Date Recorded Body height Body mass index (BMI) Body weight Systolic blood pressure Diastolic blood pressure Provider Name and Address Organization Details Last Updated DateTime 04/12/2024 162.56 cm 33.5 kg/m2 92877.51 g 103 mm[Hg] 68 mm[Hg] Antonietta Grimm [facility] 18:27:37 Date Recorded Body height Body mass index (BMI) Body weight Systolic blood pressure Diastolic blood pressure Provider Name and Address Organization Details Last Updated DateTime 04/19/2024 162.56 cm 33.3 kg/m2 43676.92 g 119 mm[Hg] 73 mm[Hg] Antonietta Grimm [facility] 4 17:12:20 Date Recorded Body height Body mass index (BMI) Body weight Systolic blood pressure Diastolic blood pressure Provider Name and Address Organization Details Last Updated DateTime 08/11/2024 162.56 cm 34.8 kg/m2 10026.25 g 134 mm[Hg] 77 mm[Hg] Antonietta Grimm [facility] 5 15:46:18 Date Recorded Body height Body mass index (BMI) Body weight Systolic blood pressure Diastolic blood pressure Provider Name and Address Organization Details Last Updated DateTime 08/15/2024 162.56 cm 34.8 kg/m2 00449.25 g 106 mm[Hg] 70 mm[Hg] Altagracia Wall [facility] 5 15:56:15 Social History Question Answer Notes LastModified by Organizat ion Details LastModified Time Tobacco Smoking Status Never Smoker Becki Bailey [email or web address], [facility] 09/30/2022 16:32:16 Do You Have An Advance Directive? No [email or web address] Information n ot available 09/30/2020 What Is Your Level Of Alcohol Consumption? None [email or web address] Information not available 09/30/2020 If You Are , What Was Your Level Of Alcohol Consumption Prior To ? Occasional [email or web address] Information not available 10/06/2023 Are You Blind Or Do You Have Difficulty Seeing? No Information n ot available 09/30/2020 What Is Your Level Of Caffeine Consumption? Heavy [email or web address] Information not available 09/30/2020 In The 14 Days Before Symptom Onset, Have You Had Close Contact With A Laboratory-confirm ed COVID-19 While That Case Was Ill? No [email or web address] Information n ot available 09/30/2020 In The 14 Days Before Symptom Onset, Have You Had Close Contact With A Person Who Is Under Investigation For COVID-19 While That Person Was Ill? No [email or web address] Information not available 09/30/2020 Have You Been To An Area Known To Be High Risk For COVID-19? No [email or web address] Information not available 09/30/2020 Are You Deaf Or Do You Have Serious Difficulty Hearing? No [email or web address] Information not available 09/30/2020 What Type Of Diet Are You Following? REGULAR [email or web address] Information n ot available 09/30/2020 What Is The Highest Grade Or Level Of School You Have Completed Or The Highest Degree You Have Received? 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 No [email or web address] Information not available 09/30/2020 Do You Use Protection During Sex? Usually [email or web address] Information not available 09/30/2020 Do You Use Your Seat Belt Or Car Seat Routinely? Yes [email or web address] Information not available 09/30/2020 Do You Have Smoke And Carbon Monoxide Detectors In Your Home? Yes [email or web address] Information not available 09/30/2020 How Much Tobacco Do You Smoke? No [email or web address] Information not available 09/30/2020 Do You Feel Stressed (tense, Restless, Nervous, Or Anxious, Or Unable To Sleep At Night)? [id number] [email or web address] Information not available 09/30/2020 Do You Use Any Illicit Or Recreational Drugs? No Information not available 09/30/2020 Do You Use Sunscreen Routinely? No Information not available 09/30/2020 Has Tobacco Cessation Counseling Been Provided? No [email or web address] Information not available 09/30/2022 Have You Used IV Drugs? No [email or web address] Information not available 09/30/2020 Do You Or Have You Ever Used Any Other Forms Of Tobacco Or Nicotine? No [email or web address] Information not available 09/30/2022 Sex: Unknown Functional Status Question Answer Note LastModified by Organizat ion Details LastModified Time Do you have difficulty walking or climbing stairs? No [email or web address] Information not available 09/30/2022 Are you able to walk? YESWOREST [email or web address] Information not available 09/30/2020 Are you able to care for yourself? Yes [email or web address] Information not available 09/30/2022 Do you have difficulty dressing or bathing? No Information not available 09/30/2022 What is your exercise level? Occasional [email or web address] Information not available 09/30/2020 Mental Status None recorded. Family History Relationship Description Onset Age of this Age Resolved Age Notes LastModified by Organization Details LastModified Time Maternal Grandmother Heart disease [email or web address] Not available 2020 12:22:20 Maternal Grandmother High risk [email or web address] Not available 2020 12:22:20 Mother Heart disease [email or web address] Not available 2020 12:22:20 Mother Kidney disease [email or web address] Not available 2020 12:22:20 Mother High risk Not available 2020 12:22:20 Brother Asthma [email or web address] Not available 09/30/2020 12:22:20 Medical History Condition Response Allergies (Food, seasonal, environmental ) Y Other N Breast Cancer N Drug/Latex Allergies/Reactions N Blood Transfusion N Dermatologic Disorders N Lung Disease N Defects or Inherited Disease N Breast Problem N Gestational Diabetes N Hematologic disorders N Anesthesia Complications N History of STI N Deep Vein Thrombosis N Polycystic ovary syndrome N Anxiety Disorder Y Autoimmune disease N Arthritis N Infertility N Polyps N Acid Reflux (GERD) N History of abnormal pap N Cancer N Stroke N Varicosities N Neurologic/Epilepsy Y Endometriosis N High Cholesterol N Headaches Y Fibromyalgia N Kidney Disease N Heart Problems N Kidney or Bladder Problems N Thyroid Problems N GI Problems N Eating Disorder N Anemia N Art (IVF or FET) N Psychiatric Illness N Ovarian Cancer N Diabetes N Pulmonary (TB, Asthma) N Hepatitis/Liver Disease N No Past Medical History Y Eczema N Urinary Tract Infection N Abuse/Domestic Violence N Asthma N Trauma/Violence N Depression/ depression Y Heart Disease N Pre-Eclampsia N Hypertension N Osteoporosis N Thrombophilias N Gynecological History Statement/Question Response Date of Last Mammogram Date of LMP 06/03/2024 On BCP's at Conception? N N Was last menstrual period normal Y STIs/STDs N HPV Vaccine N Duration of Flow (days) 5 Current Control Method None Frequency of Cycle (Q days) 5 Sexually Active? Y Date of DEXA bone scan Date of Last Pap Smear 04/22/2023 Sexual Problems? N Desired Control Method LMP Approximate N Obstetrics History GPAL:G 4 P 2 0 2 2 Type Value Full Term 2 Induced 1 Spontaneous 1 Living 2 Total 4 Past Encounters Encounter ID Performer Location Encounter Start Date Encounter Closed Date Diagnosis/Indication Diagnosis SNOMED-CT Code Diagnosis ICD10 Code Diagnosis Note [id number] Leanna Tim [place] [address],[place] [address] 09/30/2020 12:03:52 09/30/2020 13:18:10 test positive [id number] Z32.01 Risk factors addressed: Tobacco Cessation, Safe Sexual Practices, environmen nakul, work hazards, travel restrictio ns, seat belt use. Eat a health well balanced diet, avoid alcohol, tobacco, and street drugs. Engage in daily low impact exercise, avoid temperatur e extremes, and cat, rodent, and bird feces. Avoid travel to areas where zika virus is a concern. Offered cf/sma/nip t. Desires all 3. Handouts given and discussed with patient. Childbirth classes recommende d. New OB sheet given. If previous , counseling . Pt verbalizes that she understand s the importance of above instructio ns. All questions were answered. Patient reminded to have annual well woman examinatio n and address [facility] . [id number] [facility] [address],[place] [address] 09/30/2020 12:05:23 09/30/2020 17:07:46 [id number] Sarahy Moss [place] [address],[place] [address] 10/31/2020 16:10:00 10/31/2020 17:08:35 screening 395846588 Z36.82 [id number] Devon Rooney MD [place] [address],[place] [address] 10/31/2020 16:10:15 11/03/2020 21:56:44 Routine care 483448991 Z34.90 [id number] Sammi Monsalve CNM [place] [address],[place] [address] 11/29/2020 12:26:15 11/29/2020 13:21:04 Routine care 244645743 Z34.92 [id number] Sammi Monsalve [facility] [address],[place] [address] 12/25/2020 13:33:32 12/25/2020 15:38:05 Routine care 541310145 Z34.92 [facility] [id number] G43.90 [id number] [facility] [address],[place] [address] 12/25/2020 13:32:54 12/25/2020 16:23:27 screening for malformation 908672233 Z36.3 [id number] Sammi Monsalve [facility] [address],[place] [address] 01/24/2021 09:21:25 01/24/2021 12:00:47 Routine care 740503305 Z34.92 [id number] Devon Rooney MD [place] [address],[place] [address] 02/19/2021 14:54:38 02/19/2021 18:00:01 Uterine size for dates discrepancy 534975844 O26.849 [id number] [facility] [address],[place] [address] 02/27/2021 14:02:55 02/27/2021 15:47:42 Uterine size for dates discrepancy 377243265 O26.843 Z3A.29 [id number] [facility] [address],[place] [address] 03/05/2021 14:47:05 03/05/2021 17:56:30 Routine care 662094947 Z34.92 [id number] [facility] [address],[place] [address] 03/19/2021 14:01:22 03/19/2021 14:45:24 Routine care 779809546 Z34.92 [id number] Sammi Monsalve [facility] [address],[place] [address] 04/02/2021 14:24:23 04/02/2021 15:08:10 Routine care 135009516 Z34.92 [id number] Sammi Monsalve [facility] [address],[place] [address] 04/16/2021 15:03:30 04/16/2021 16:27:02 Routine care 318938381 Z34.92 [id number] Sammi Monsalve [facility] [address],[place] [address] 04/23/2021 08:58:15 04/23/2021 10:34:30 Routine care 770730847 Z34.92 [id number] Sammi Monsalve [facility] [address],[place] [address] 04/30/2021 10:10:43 04/30/2021 13:24:50 Routine care 722674586 Z34.92 [id number] Sammi Monsalve [facility] [address],[place] [address] 05/28/2021 16:58:37 05/29/2021 09:50:55 care 481768990 Z39.2 [id number] Julieta Dotson [place] [address] [place] [address] 07/16/2021 11:16:08 07/16/2021 12:12:25 Abnormal uterine bleeding [id number] 9100 N93.9 [id number] Sammi Monsalve [facility] [address] [place] [address] 07/30/2021 11:45:50 07/30/2021 12:16:49 Contraception care management [id number] Z30.9 [id number] Julieta Dotson [place] [address] [place] [address] 08/27/2021 17:41:08 08/27/2021 18:17:00 Endometrium thickened 931522370 R93.89 [id number] Sammi Monsalve CNM [place] [address] [address] 08/29/2021 09:09:42 08/29/2021 10:15:21 Irregular periods 55367322 N92.6 [id number] Antoniettapreet Grimm [place] [address],[place] [address] 10/17/2021 14:56:57 10/18/2021 09:07:26 Contraception care management 980069304 Z30.9 [id number] [facility] [address] [address] 11/05/2021 11:54:18 11/05/2021 12:25:08 Gynecologic examination 58772231 Z01.419 [id number] JONATHAN Rivera [place] [address],[place] [address] 02/11/2022 16:41:26 02/11/2022 17:39:56 Vaginal discharge 311565536 N89.8 Normal exam todayVagin itis panel sentSTI endocervic al testing sentWill await cultures and treat as needed UPT (-) todayWe discussed BC options, as she is not trying for pregnancyE ncouraged daily PNVRTC if BC desiredBhc g offered to patient Time spent in visit is a total of 20 mins with at least 50% of visit consisting of counseling and review of plan of care. Irregular periods 384042 07 N92.6 [id number] Alia Soria MD [place] [address],[place] [address] 04/07/2022 12:02:50 04/07/2022 13:43:30 Bacterial vaginosis 349931656 N76.0 [id number] Sammi Monsalve CNM [place] [address],[place] [address] 05/08/2022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 Protein Cervic Dilation Cervic Effacement Cervic Station Type Weight in lbs Pre/Post Dialysis Refused BP Diastolic BP Location Tested BP Systolic BP Type Fetus Heart Rate Present Fetus Movement Comments Flowsheet Date 02/23/2024 Segura Score Blood Edema Fundus Height Fundus Units Glucose Ketones Leukocytes Nitrite Labor Signs Protein Cervic Dilation Cervic Effacement Cervic Station Type Weight in lbs Pre/Post Dialysis Refused 190.743764049277 BP Diastolic BP Location Tested BP Systolic BP Type 69 103 Fetus Heart Rate Present Fetus Movement A Yes Comments Patient states that is havin g some pain, contractions, swelling and nausea. mood improving, new note for work, copy in chart, +FM, gct today efw 32%, continue zoloft 25 mg f/u 2 weeks, precautions and education discuss tdap and rsv next visit Flowsheet Date 03/06/2024 Segura Score Blood Edema Fundus Height Fundus Units Glucose Ketones Leukocytes Nitrite Labor Signs Protein Cervic Dilation Cervic Effacement Cervic Station none Type Weight in lbs Pre/Post Dialysis Refused Weight 190.002418058436 BP Diastolic BP Location Tested BP Systolic BP Type 68 98 Fetus Heart Rate Present Fetus Movement A Yes Comments Patient states that is havin g some pelvic pain, back pain and nausea. maternity belt through [employer], plan 32 week growth, +FM discuss rsv at next visit. education and precautions f/u 2 weeks Flowsheet Date 03/22/2024 Segura Score Blood Edema Fundus Height Fundus Units Glucose Ketones Leukocytes Nitrite Labor Signs Protein Cervic Dilation Cervic Effacement Cervic Station trace Type Weight in lbs Pre/Post Dialysis Refused Weight 193.924867143024 BP Diastolic BP Location Tested BP Systolic BP Type 70 103 Fetus Heart Rate Present Fetus Movement A Yes Comments Patient states that is havin g some pain, contractions, swelling, nausea and vomiting. reviewed precautions and education US next visit for growth, +FM, f/u 2 weeks Flowsheet Date 04/04/2024 Segura Score Blood Edema Fundus Height Fundus Units Glucose Ketones Leukocytes Nitrite Labor Signs Protein Cervic Dilation Cervic Effacement Cervic Station Type Weight in lbs Pre/Post Dialysis Refused BP Diastolic BP Location Tested BP Systolic BP Type Fetus Heart Rate Present Fetus Movement Comments Flowsheet Date 04/12/2024 Esgura Score Blood Edema Fundus Height Fundus Units Glucose Ketones Leukocytes Nitrite Labor Signs Protein Cervic Dilation Cervic Effacement Cervic Station neg none 35 cm Type Weight in lbs Pre/Post Dialysis Refused Weight 195.968397941861 BP Diastolic BP Location Tested BP Systolic BP Type 68 103 Fetus Heart Rate Present A 150 Fetus Movement A Yes Comments Patient is having BH contrac tions. reviewed precautions and education GBS +, +FM f/u one week Flowsheet Date 04/19/2024 Segura Score Blood Edema Fundus Height Fundus Units Glucose Ketones Leukocytes Nitrite Labor Signs Protein Cervic Dilation Cervic Effacement Cervic Station 36 cm 1cm 50% Type Weight in lbs Pre/Post Dialysis Refused Weight 194.061300004385 BP Diastolic BP Location Tested BP Systolic BP Type 73 119 Fetus Heart Rate Present A 155 Fetus Movement A Yes Comments Patient is having some disch arge, contractions, nausea and vomiting. education and precautions +FM, wants membrane sweep at next visit f/u one week Menstrual History Last Menstrual Date Menses Monthly On Bcp Conception Prior Menses Frequency Hcg Plus Date Menarche Onset Age 0308/05/2023 Genetic Screening And Infection History Question Response Note Mental Retardation/Autism false Patient's Age Will Be 35 Yea rs Or Older At Estimated Date of Delivery false Thalassemia (Anguillan, Italian, Mediterranean, Or Background): MCV < 80 false Neural Tube Defect (Meningom yelocele, Spina Bifida, Or Anencephaly) false Congenital Heart Defect false Down Syndrome false Nikolai-Sachs (eg, Mandaeism, Cajun, Swiss-Drew) f alse Shilpi Disease false Sickle Cell Disease Or Trait () false Hemophilia Or Other Blood Disorders false Muscular Dystrophy false Cystic Fibrosis false Innis's Chorea false Intellectual Disability/Autism false If Yes, Was Person Tested For Fragile X? false Other Inherited Genetic Or Chromosomal Disorder false Maternal Metabolic Disorder (eg, Type 1 Diabetes , PKU) false Patient Or Baby's Father Had A Child With Defects Not Listed Above false Recurrent Loss, Or A Stillbirth false Medications (including Suppl ements, Vitamins, Herbs, OTC Drugs), Illicit/Recreational Drugs, Alcohol false pnv vit D If Yes, Agent(s) And Strength/Dosage false Any Other Genetic History false Live With Someone With TB Or Exposed To TB false Patient Or Partner Has History Of Genital Herpes false Rash Or Viral Illness Since Last Menstrual Perio d false History Of STD, Gonorrhea, Chlamydia, HPV, Syphi lis false Other Infection History false History of HIV false History of Hepatitis false Prior GBS-infected child false Hemoglobinopathy Or Carrier false Other Structural Defect false Recent Travel History Outside of Country false Delivery Information Delivery Date Delivery Type Labor Anesthesia Weeks Gestation Incision Type Labor Labor Length Hrs Delivered By Post Complications Tubal Sterilization Discharge Date Comments 4 Induce d 37.6 4.56 Sammi Monsalve CNM Discharge Information Feeding Method Contraceptive Method Maternal HG B and HCT Levels
--- OUTSIDE RECORDS SUMMARY | 2024-08-21 00:08 | XMS_ITS | Clinical Summary ---
Author Organization [facility] Address [facility] [place] [address] Care Team Providers Care Sliding Joint Maker Name Role Phone Taylor Bhatt BUSINESS TRAVEL CONSULTANT Primary Care Provider [phone] Allergies No known active allergies Medications vitamin 27-1 MG Tab tablet Take 1 tablet by mouth daily. Active Family History Medical History Relation Comments Hypertension Maternal Grandmother Kidney Disease Maternal Grandmother Hypertension Mother Kidney Disease Mother Relation Status Comments Father Alive Maternal Grandmother Mother Alive Social History Tobacco Use Types Packs/Day Years Used Date Smoking Tobacco: Never Smokeless Tobacco: Never Tobacco Cessation:Counseling Given: Not Answered Alcohol Use Standard Drinks/Week Comments Yes 0 (1 standard drink = 0.6 oz pur e alcohol) ocassionally Estimated Date of Delivery Comme nts Yes 05/11/2024 Sex and Gender Information Value Date Recorded Sex Assigned at Not on file Legal Sex Female 4:07 PM CDT Gender Identity Not on file Sexual Orientation Not on file Last Filed Vital Signs Vital Sign Reading Time Taken Comments Blood Pressure 101/67 12/14/2023 9:30 AM CDT Pulse 99 12/14/2023 8:37 AM CDT Temperature 37 C (98.6 F) 12/14/2023 8:37 AM CDT Respiratory Rate 18 12/14/2023 9:30 AM CDT Oxygen Saturation 100% 12/14/2023 9:30 AM CDT Inhaled Oxygen Concentration - - Weight 83 kg (182 lb 14.4 oz) 12/14/2023 8:37 AM CDT Height 162.6 cm (5' 4 ) 12/14/2023 8:37 AM CDT Body Mass Index 31.39 12/14/2023 8:37 AM CDT Plan of Treatment Health Maintenance Due Date Last Done Comments Annual Physical 2003 HPV Vaccines (3 - 3-dose series) 07/02/2018 03/22/2018, 12/30/2017 DTaP, Tdap and Td Vaccines (6 - Td or Tdap) 12/08/2021 12/09/2011, 06/20/2004, 08/16/2001, Additional history exists COVID-19 Vaccine ( season) 2024 Influenza Adult (#1) 2024 04/13/2023, 03/12/2022, 03/15/2021, Additional history exists Chlamydia Screening Females ages 16-24 10/05/2024 10/06/2023, 06/16/2022 Cervical Cancer Screening Pap Smear (Age 21 to 29) Every 3 Years 10/05/2026 10/06/2023, 06/16/2022 Cervical Cancer Screening 10/05/2026 RSV Immunization or 60+ Years (1 - 1-dose 75+ series) 2075 Pneumococcal Vaccine: Pediatrics (0 to 5 Years) and At-Risk Patients (6 to 64 Years) Aged Out 2000, 2000, 2000 No longer eligible based on patient's age to complete this topic Hepatitis B Vaccines Completed 05/25/2001, 2000, 2000 Meningococcal Vaccine Completed 12/30/2017, 012 Meningococcal B Vaccine Completed 03/22/2018, 12/30 Hepatitis C Completed 10/18/2023, 10/18/2023 RSV Immunizations Under 20 Months Aged Out No longer eligible based on patient's age to complete this topic Insurance [employer] Care Teams Sliding Joint Maker Relationship Specialty Start Date End Date Taylor Bhatt BUSINESS TRAVEL CONSULTANT [address] [place] [address] PCP - General FAMILY PRACTICE 12/14/23
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
--- OUTSIDE RECORDS SUMMARY | 2024-08-21 00:08 | XMS_ITS | Continuity of Care Document ---
Author Organization [facility] Address [address] [place] [address] Phone Care Team Providers Care Keyseater Operator Name Role Phone Alyssa Gandhi Unavailable Unavailab le Medications Medication Instructions Dosage Effective Dates (start - stop) Status Comments triamcinolone acetonide 0.5 % Topical Cream apply by topical route 2 times every day a thin layer to the affected area(s) 0.00 - Active Zyrtec-D 5 mg-120 mg tablet,extended release take 1 tablet by oral route every 12 hours 1.00 tablet - Active Procedures Procedure Date OFFICE/OUTPATIENT VISIT, EST OFFICE/OUTPATIENT VISIT, EST STREP A ASSAY W/OPTIC OFFICE/OUTPATIENT VISIT, EST Bitewings Two Films Periodic Oral Evaluation Established Patient PREV VISIT, EST, AGE 5-11 VFC MENINGOCOCCAL VACCINE, IM 2 VFC TDAP VACCINE >7 IM VFC Administration Code OFFICE/OUTPATIENT VISIT, EST REPAIR SUPERFICIAL WOUND(S) HFO, no joint, prefabricated School Physical Est School Periodic Oral Evaluation 011 School Program Prophylaxis Child School Topical Application Of Fluoride ( Prophylaxis Not I Prophylaxis Child Topical Fluoride Varnish; Therapeutic Ap plication OFFICE/OUTPATIENT VISIT, EST OFFICE/OUTPATIENT VISIT, EST OFFICE/OUTPATIENT VISIT, EST OFFICE/OUTPATIENT VISIT, EST OFFICE/OUTPATIENT VISIT, EST School Periodic Oral Evaluation 010 School Program Prophylaxis Child School Topical Application Of Fluoride ( Prophylaxis Not I School Sealant Per Tooth School Sealant Per Tooth Advance Directives Directive Yes / No Effective Date File Name No Information Encounters Encounter Description Practice Location Reason(s) For Visit Diagnoses Date Provider Providers Copied on Encounter OFFICE/OUTPAT IENT VISIT, [facility], [address] [place] [address], [id number], tel:[phone] [facility] rash (chief complaint) Contact dermatitis Zackary Shah. [address] [place] [address], [facility], . tel:[phone] Referring Provider: Anay Campbell, [address] [place] [address], [facility]. tel:[phone] OFFICE/OUTPAT IENT VISIT, [facility], [address] [place] [address], [id number], tel:[phone] [facility] No Information Ankush Braxton. [address] [place], [address]. tel:[phone] Referring Provider: Fox Medel, [address] [place], [address]. tel:[phone] OFFICE/OUTPAT IENT VISIT, [facility], [address] [place] [address], [id number], tel:[phone] [facility] No Information Zackary Shah. [address] [place] [address], [facility], . tel:[phone] Referring Provider: Anay Campbell, [address] [facility], [place], [address]. tel:[phone] [facility], [address], [place], [place], [id number], tel:[phone] [facility] Dental examination Francisco Randle. [address], [place], [place], [id number], [place]. tel:[phone] Referring Provider: Jer Medel, [address], [place], [address] . tel:[phone] PREV VISIT, EST, AGE 5-11 [facility], [address], [place], [place], [id number], tel:[phone] [facility] No Information Devyn Solo. [address] [place], [address], [place]. tel:[phone] Referring Provider: RODOLFO Helms , [address] [place], [address]. tel:[phone] OFFICE/OUTPAT IENT VISIT, [facility], [address], [place], [place], [id number], [place] tel:[phone] [facility] No Information Erwin Quiles. [address] [place], [address], . tel:[phone] Referring Provider: Carl Sheppard, [facility] [facility], [place], [address]. tel:[phone] [facility], [address], [place], [place], [id number], tel:[phone] [facility] No Information Ivan Henry. [facility] [place], [address], [place]. tel:[phone] Referring Provider: aCrl Sheppard, [facility], [place], [place], [facility]. tel:[phone] [facility], [address], [place], [place], [id number], [place] tel:[phone] [facility] No Information Devyn Solo. [address] [place], [address], [place]. tel:[phone] Referring Provider: RODOLFO Helms , [address] [place], [address]. tel:[phone] [facility], [address], [place], [place], [id number], [place] tel:[phone] [facility] Dental examination Francisco Randle. [address], [place], [place], [id number], [place]. tel:[phone] Referring Provider: Jer Medel, [address], [place], [address] . tel:[phone] [facility], [address], [place], [place], [id number], [place] tel:[phone] [facility] No Information Francisco Randle. [address], [place], [place], [id number], [place]. tel:[phone] Referring Provider: Jer Medel, [address], [place], [address] . tel:[phone] OFFICE/OUTPAT IENT VISIT, [facility], [address], [place], [place], [id number], [place] tel:[phone] [facility] No Information Zackary Shah. [address] [place] [address], [facility], . tel:[phone] Referring Provider: Anay Campbell, [address] [place] [address], [facility]. tel:[phone] OFFICE/OUTPAT IENT VISIT, [facility], [address], [place], [place], [id number], tel:[phone] [facility] No Information Zackary Shah. [address] [place] [address], [facility], . tel:[phone] Referring Provider: Anay Campbell, [address] [place] [address], [facility]. tel:[phone] OFFICE/OUTPAT IENT VISIT, [facility], [address], [place], [id number], tel:[phone] [facility] No Information Zackary Chowney. [address] [place] [address], [facility], . tel:[phone] Referring Provider: Anay Campbell, [address] [place] [address], [facility]. tel:[phone] OFFICE/OUTPAT IENT VISIT, [facility], [address], [place], [id number], tel:[phone] [facility] No Information Ankush Braxton. [address] [place], [address]. tel:[phone] Referring Provider: Fox Medel, [place], [address]. tel:[phone] OFFICE/OUTPAT IENT VISIT, [facility], [address], [place], [id number], tel:[phone] [facility] No Information Ankush Braxton. [address] [place], [address]. tel:[phone] Referring Provider: Fox Medel, [address] [place], [address]. tel:[phone] [facility], [address], [place], [id number], tel:[phone] [facility] No Information Francisco Randle. [address], [place], [place], [id number], [place]. tel:[phone] Referring Provider: Jer Medel, [address], [place], [address] . tel:[phone] Family History Family Member Type Diagnosis Age At Onset No Information Payers Payer name Insurance type Covered alliance party ID Marquis moffett(s) [place] Medicaid MC [id number] Social History Type Description Quantity Date Captured Comments Alcohol Use Details No Caffeine Use Details soda 8 oz per day Tobacco Use Status No Information Smoking Status Never smoker Non-Smoking Tobacco Use Details : No Details Available : No Details Available Sex Female Vital Signs Date / Time: Height Weight BMI Pulse Rate Blood Pressure Temperature Respiratory Rate Body Surface Area Head Circumference Head Circ. Percentile Wt./Efrain. Percentile BMI percentile Pulse Ox Inhaled Ox 4:12 PM 63.00 in 106.20 lbs 18.8 1 kg/m eter (2) 60 /min 110/76 mm[Hg] 97.80 F 14 /min 1.46 meter(2) 56 Chief Complaint And Reason For Visit From encounter dated '10/03/2012 15:00'. rash (chief complaint) Reason For Referral Reason For Referral No Information History Of Present Illness Encounter Date Complaint History Of Prese nt Illness No Information Functional Status Date Functional Assessmen t Pain Score 9/10 Instructions Date Instruction Additional Infor mation No Information Assessments Type Assessment Date No Information Patient Care Teams Name Effective Dates (start - stop) Status Members No Information
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
[2024-08-21 06:23] VITALS: BP 125/71; PULSE 87; RESP 16; TEMP 36.3; O2SAT 100
[2024-08-21 07:04] VITALS: BMI 35.0
--- NOTE | 2024-08-21 07:16 | P.PNAN_ITS ---
Anes - Initial Pre Proc Eval Procedure: Operation Date: 08/21/24 07:30 Proposed Procedures p Suction Dilatation and Curettage - Ranjeet Bledsoe MD Date/Time: 08/21/24 07:16 Surgeon: Ranjeet Bledsoe MD Pre Op Diagnosis: missed AB, retained product Patient Data Age: 24 Gender: F Height: 1.63 m Weight: 92.6 kg Last Vital Signs Temp 36.3 C L 08/21/24 06:23 Pulse 87 08/21/24 06:23 Resp 16 08/21/24 06:23 BP 125/71 08/21/24 06:23 Pulse Ox 100 08/21/24 06:23 Allergies Allergy/AdvReac Type Severity Reaction Status Date / Time No Known Allergies Allergy Verified 08/21/24 06:38 Home Medications ?Medication ?Instructions ?Recorded ?Confirmed ?Type No Home Medications 08/17/24 08/17/24 History Patient hx anesthesia problems: none Family hx anesthesia problems: none Results Review: All pre-operative results and documents have been reviewed as part of the pre- operative evaluation. [facility] Family History Family History Mother Renal failure Hypertension Congestive heart failure Social History Social History Smoking status: Former smoker Tobacco type: e-cigarettes/vaping Additional smoking assessment comments: OFF AND ON Alcohol intake: current Drinks per week: 1 Alcohol use details: RARE USE Substance use: never Living arrangements: with family Spiritual care concerns: No Anes - Eval Final PreProcedure Day of Procedure 08/21/24 07:16 Patient weight: obese Heart: regular rate and rhythm Lungs: clear to auscultation Airway: Mallampati scale class II Neurological: alert and oriented Last oral intake: >/= 8 hours ASA classification: II Emergent: no Anesthetic plan: proceed Anesthesia type and monitoring: general GIVS and standard monitoring Results Review: All pre-operative results and documents have been reviewed as part of the pre- operative evaluation. Informed Consent: The patient's anesthetic plan and its attendant risks and benefits were discussed with the patient/family/POA. Questions were solicited and answers provided to the satisfaction of the patient/family/POA.
[2024-08-21] MEDS: LACTATED RINGERS 1,000 ML 30 ML IV CONT (07:49)
--- NOTE | 2024-08-21 07:56 | P.HP_ITS ---
H&P: HPI History of Present Illness Date/Time: 08/21/24 07:56 Chief Complaint: Missed miscarriage Narrative: This patient is a 24-year-old female with missed miscarriage. We have agreed to perform suction D&C. She understands risks, benefits, and alternatives. She has completed informed consent process is ready to proceed The patient understands the details of the procedure. The procedure has been explained in detail. She understands the risks. She understands that injuries may occur that result in hospitalization, more surgery, and severe illness. She understands risk of hemorrhage and infection. She denies any chest pain or shortness of breath. She denies any nausea, vomiting, fever, chills. Review of Systems Review of Systems: All systems reviewed & are unremarkable except as noted in HPI and below Constitutional: Constitutional: Denies chills, Denies fatigue, Denies fever(s) and Denies weakness Eyes: Eyes: Denies blurry vision, Denies change in vision, Denies loss of peripheral vision, Denies loss of vision, Denies other visual disturbances and Denies eye pain ENT: Denies vertigo, Denies dizziness, Denies hearing loss, Denies mouth pain, Denies nasal obstruction, Denies neck mass and Denies neck pain Cardiovascular: Cardiovascular: Denies chest pain, Denies diaphoresis, Denies syncope, Denies leg edema and Denies dyspnea Respiratory: Respiratory: Denies chest congestion, Denies cough, Denies hemoptysis, Denies dyspnea and Denies wheezing Gastrointestinal: Gastrointestinal: Denies abdominal pain, Denies constipation, Denies diarrhea, Denies nausea and Denies vomiting Genitourinary: Genitourinary: Denies hematuria, Denies change in libido, Denies nocturia, Denies genital lesions, Denies flank pain and Denies urinary urgency Musculoskeletal: Musculoskeletal: Denies abnormal gait, Denies back pain, Denies myalgias, Denies arthralgias, Denies joint swelling, Denies muscle weakness and Denies neck pain Integumentary/Breasts: Skin/Breast: Denies swelling, Denies breast pain, Denies breast mass, Denies dry skin, Denies nipple discharge, Denies unusual bruising and Denies jaundice Neurologic: Denies Neuro-related abnormal movements, Denies Abnormal speech present, Denies abnormal gait, Denies behavioral changes, Denies confusion, Denies vertigo, Denies dizziness, Denies syncope, Denies loss of vision, Denies memory loss, Denies convulsions and Denies weakness Psychiatric: Psychiatric: Denies abnormal sleep pattern, Denies behavioral changes, Denies change in libido, Denies confusion, Denies depression, Denies anhedonia and Denies memory loss Endocrine: Endocrine: Reports no additional endocrine complaints, Denies change in libido and Denies fatigue Hematologic/Lymphatic: Hematologic/Lymphatic: Reports no additional hematologic/lymphatic complaints Allergic/Immunologic: Allergic/Immunologic: Reports no additional allergic/immunologic complaints and Denies wheezing [facility] Family History Family History Mother Renal failure Hypertension Congestive heart failure Social History Social History Smoking status: Former smoker Tobacco type: e-cigarettes/vaping Additional smoking assessment comments: OFF AND ON Alcohol intake: current Drinks per week: 1 Alcohol use details: RARE USE Substance use: never Living arrangements: with family Spiritual care concerns: No Meds Home Medications and Allergies Home Medications ?Medication ?Instructions ?Recorded ?Confirmed ?Type No Home Medications 08/17/24 08/17/24 History Allergies Allergy/AdvReac Type Severity Reaction Status Date / Time No Known Allergies Allergy Verified 08/21/24 06:38 Vital Signs Vital Signs - 24 hr 08/21/24 06:23 Temperature 97.3 F L Pulse Rate 87 Respiratory Rate 16 Blood Pressure 125/71 Pulse Oximetry 100 Exam Const: General: cooperative, healthy appearing, comfortable and no acute distress Orientation/consciousness: oriented to person, oriented to place and oriented to time HENMT: Head: normal to inspection Ears: external ears normal Face/Nose/Sinus: Normal external nose present and normal facial exam Face and sinus: normal facial exam Eyes: General: appearance normal, both eyes and all related structures Neck: Neck: normal visual inspection, trachea midline and supple Resp: Auscultation: clear to auscultation bilaterally, no crackles, no rales, no rhonchi and no wheezes Cardio: Rate: regular rate Rhythm: regular rhythm Heart sounds: no click, no murmurs and no rubs GI: GI Palp: No abdominal tenderness, No Soft to palpation, No Tenderness to palpation present (GI) and No Palpable mass present Auscultation: normal bowel sounds Skin: General skin exam: normal color and no rashes or lesions noted Neuro: General: oriented to person, oriented to place and oriented to time Extrem: General: normal to inspection, no joint enlargement, no clubbing, cyanosis or edema, no pedal edema and no calf tenderness Psych: Appearance: grossly normal Mental Status: mental status grossly normal Speech and movement: Normal speech and movement present Assessment and Plan Assessment and plan (1) Missed : Code(s): O02.1 - Missed Status: Acute Assessment and Plan: This patient is a 24-year-old female with missed miscarriage. We have agreed to perform suction D&C. She understands risks, benefits, and alternatives. She has completed informed consent process is ready to proceed
--- NOTE | 2024-08-21 07:56 | WPDHPUPDATE1 ---
History and Physical Update Update Date/Time: 08/21/24 07:56 History and Physical has been reviewed, including an updated exam of the patient. There are NO changes in the patient's condition. Risks, benefits, and alternatives have been discussed and questions answered. Patient agrees to proceed with procedure.
[2024-08-21 08:20] VITALS: BP 114/70; PULSE 89; RESP 14; O2SAT 97
--- NOTE | 2024-08-21 08:22 | P.OP_ITS ---
Procedure Note - Detailed Date of Procedure 08/21/24 Pre-op Diagnosis missed AB, retained product Post-op Diagnosis Same Procedure Performed Suction D&C Surgeon Devon Rooney MD Anesthesia MAC Indications missed Findings normal-appearing vulva vagina and cervix to. Moderate amount of products conception within the uterus. 8 cm uterus Description of Procedure the patient was taken the operating room. She was prepped and draped in dorsal lithotomy position after induction of mac anesthesia. A speculum was placed in the vagina. Cervix grasped with tenaculum. The cervix was dilated to about 1 cm Using Peterson dilators. A 8. Indonesian curved curette was used to perform suction D&C. The curette was introduced and vacuum was applied. The curette was removed over all surfaces of the intrauterine cavity multiple times. This was done until all the surfaces were clear and had the familiar grainy texture they can be felt through the instrument. A sharp curette was then used to curettage all the surfaces. The suction cup was then reapplied 1 more time to remove any debris. The instruments were removed. The speculum and tenaculum were removed. The patient tolerated the procedure well. She was taken recovery room stable condition. Estimated Blood Loss 50 Drains No Packing No Pathology Yes Complications No immediate complications Condition Stable Disposition PACU
[2024-08-21 08:50] VITALS: BP 105/70; PULSE 75; RESP 14; O2SAT 99
[2024-08-21 09:15] VITALS: BP 104/90; PULSE 94; RESP 14
== END 2024-08-21 09:24 | disposition home or self-care (01) ==
PROVIDERS: Visit Provider Obstetrics & Gynecology
DX: O02.1 Missed abortion (principal); F17.290 Nicotine dependence, other tobacco product, uncomplicated; Z82.49 Family history of ischemic heart disease and other diseases of the circulatory system
CPT/HCPCS: 59820; 88305; J2250; J2270; J2704; J7120